=== PATIENT | female | born 1935 | race Hispanic/Latino ===

== ENCOUNTER 2017-06-07 08:49 | Inpatient (IN) | payer MEDICARE ==
[2017-06-07 08:52] VITALS: BMI 30.2
--- NOTE | 2017-06-07 09:25 | ED PDOC ---
Arrival/HPI - General Chief Complaint: Shortness Of Breath Time Seen by Provider: 06/07/17 09:10 Historian: Patient - History of Present Illness Narrative History of Present Illness (Text): 06/07/17 09:20 82 year old female, whose PMH includes hypertension, diabetes, and hypothyroidism, who presents to the emergency department complaining of shortness of breath associated with cough, sputum, fever, and chest congestion for a couple of day. No other complaints were made. PMD: Dr. Perez Time/Duration: < week Symptom Onset: Gradual Symptom Course: Unchanged Context: Home Past Medical History - Provider Review Nursing Documentation Reviewed: Yes - Tetanus Immunization Tetanus Immunization: Unknown - Reproductive Menopause: Yes - Cardiac Hx Hypertension: Yes - Pulmonary Hx Pneumonia: Yes - Neurological Hx Neurological Disorder: No - HEENT Hx HEENT Disorder: (R ear decreased hearing) - Renal Hx Renal Disorder: No - Endocrine/Metabolic Hx Diabetes Mellitus Type 2: Yes Hx Hypothyroidism: Yes - Hematological/Oncological Hx Blood Disorders: No - Integumentary Hx Dermatological Disorder: No - Musculoskeletal/Rheumatological Hx Musculoskeletal Disorders: No Hx Falls: No - Gastrointestinal Hx Gastrointestinal Disorders: No - Genitourinary/Gynecological Hx Genitourinary Disorders: No - Psychiatric Hx Psychophysiologic Disorder: No Hx Depression: No Hx Emotional Abuse: No Hx Physical Abuse: No Hx Substance Use: No - Surgical History Hx Orthopedic Surgery: Yes (2 back surgery and 2 leg surgery) - Anesthesia Hx Anesthesia: Yes Hx Anesthesia Reactions: No Hx Malignant Hyperthermia: No - Suicidal Assessment Feels Threatened In Home Enviroment: No Family/Social History - Physician Review Nursing Documentation Reviewed: Yes Family/Social History: Unknown Family HX Smoking Status: Never Smoked Hx Alcohol Use: No Hx Substance Use: No Hx Substance Use Treatment: No Allergies/Home Meds Allergies/Adverse Reactions: Allergies Penicillins Allergy (Verified 06/07/17 12:05) SWELLING Home Medications: Home Meds Medication Instructions Recorded Confirmed Atorvastatin Calcium [Lipitor] 5 mg PO DAILY 01/08/13 06/07/17 Glipizide [Glipizide ER] 5 mg PO DAILY 06/07/17 06/07/17 Levothyroxine Sodium [Levoxyl] 100 mcg PO DAILY 06/07/17 06/07/17 Losartan [Cozaar] 100 mg PO DAILY 06/07/17 06/07/17 Metoprolol Tartrate [Lopressor] 50 mg PO DAILY 06/07/17 06/07/17 amLODIPine [Norvasc] 5 mg PO DAILY 06/07/17 06/07/17 Review of Systems - Review of Systems Constitutional: Fevers ENT: Sinus Congestion Respiratory: SOB, Cough, Sputum Cardiovascular: absent: Chest Pain Gastrointestinal: absent: Abdominal Pain Genitourinary Female: absent: Dysuria Musculoskeletal: absent: Back Pain Neurological: absent: Headache, Dizziness Physical Exam Vital Signs Reviewed: Yes Vital Signs Temp Pulse Resp BP Pulse Ox 06/07/17 11:13 82 21 104/68 96 06/07/17 09:50 24 95 06/07/17 09:04 98.5 F 80 22 118/77 93 L Temperature: Afebrile Blood Pressure: Normal Pulse: Regular Respiratory Rate: Agonal Appearance: Positive for: Well-Appearing, Non-Toxic, Comfortable Pain Distress: None Mental Status: Positive for: Alert and Oriented X 3 - Systems Exam Head: Present: Atraumatic, Normocephalic Pupils: Present: PERRL Extroacular Muscles: Present: EOMI Conjunctiva: Present: Normal Mouth: Present: Moist Mucous Membranes Respiratory/Chest: Present: Rales (left base), Rhonchi (left base). No: Clear to Auscultation, Good Air Exchange, Respiratory Distress, Accessory Muscle Use Abdomen: No: Tenderness, Distention, Peritoneal Signs, Rebound, Guarding Neurological: Present: GCS=15, CN II-XII Intact, Speech Normal Skin: Present: Warm, Dry, Normal Color. No: Rashes Psychiatric: Present: Alert, Oriented x 3, Normal Insight, Normal Concentration Medical Decision Making ED Course and Treatment: 06/07/17 Impression: 82 year old female with rale and rhonci at the left bases complaining of shortness of breath, coughing, and fever Plan: -- EKG -- Chest X-ray -- Labs -- Urinalysis -- Reassess and disposition Progress Notes: EKG: Ordered, reviewed, and independently interpreted the EKG. Rate : 53 BPM Rhythm : sinus bradycardia Interpretation : No ST-segment elevations or depressions, no T-wave inversions, normal intervals. Comparison : No previous EKG for comparison. 06/07/17 10:20 Chest X-ray: Creator : Davidson Grullon MD COMPARISON: 01/10/2013 FINDINGS: LUNGS: No active pulmonary disease. PLEURA: No significant pleural effusion identified, no pneumothorax apparent. CARDIOVASCULAR: There is chronic vascular congestion and bibasilar infiltrates. Mild cardiomegaly OSSEOUS STRUCTURES: No significant abnormalities. VISUALIZED UPPER ABDOMEN: Normal. OTHER FINDINGS: None. IMPRESSION: Vascular congestion and bibasilar infiltrates similar to previous study 06/08/17 15:32 dr ramos bedside agrees to admission. - Lab Interpretations Microbiology Results: Microbiology Results 06/07/17 10:10 Blood Blood Culture - Preliminary NO GROWTH AFTER 24 HOURS 06/07/17 09:40 Blood Blood Culture - Preliminary NO GROWTH AFTER 24 HOURS Lab Results: 06/07/17 09:30 06/07/17 09:30 Lab Results 06/07/17 09:51: Influenza Typ A,B (EIA) Negative for flu a/b 06/07/17 09:30: Sodium 137, Potassium 3.6, Chloride 102, Carbon Dioxide 24, Anion Gap 15, BUN 19, Creatinine 1.0, Est GFR ( Amer) > 60, Est GFR (Non- Af Amer) 53, Random Glucose 199 H, Calcium 8.8, Magnesium 1.9, Total Bilirubin 1.6 H, AST 20, ALT 25, Alkaline Phosphatase 74, Lactate Dehydrogenase 746 H, Total Creatine Kinase 46, Troponin I < 0.01, NT-Pro-B Natriuret Pep 441, Total Protein 6.5, Albumin 3.7, Globulin 2.8, Albumin/Globulin Ratio 1.3 06/07/17 09:30: PT 13.7 H, INR 1.19 H, APTT 24.6 L 06/07/17 09:30: WBC 15.0 H, RBC 4.46, Hgb 13.3, Hct 38.2, MCV 85.7, MCH 29.8, MCHC 34.8, RDW 12.7, Plt Count 200, MPV 9.9, Gran % 84.9 H, Lymph % (Auto) 5.5 L , Hamilton % (Auto) 8.3 H, Eos % (Auto) 1.1 L, Baso % (Auto) 0.2, Gran # 12.72 H, Lymph # (Auto) 0.8 L, Hamilton # (Auto) 1.2 H, Eos # (Auto) 0.2, Baso # (Auto) 0.03 I have reviewed the lab results: Yes - RAD Interpretation Radiology Orders: 06/07/17 09:17 CHEST PORTABLE [RAD] Stat Drug Abuse Worker: Radiologist - EKG Interpretation Interpreted by ED Physician: Yes Type: 12 lead EKG - Medication Orders Current Medication Orders: Amlodipine Besylate (Norvasc) 5 mg PO DAILY [facility] Last Admin: 06/08/17 10:57 Dose: 5 mg Arformoterol Tartrate (Brovana) 15 mcg IH [id number] [facility] Atorvastatin Calcium (Lipitor) 5 mg PO DAILY [facility] Last Admin: 06/08/17 10:56 Dose: 5 mg Budesonide (Pulmicort Respules) 0.5 mg IH [id number] [facility] Glipizide (Glucotrol Xl) 5 mg PO DAILY [facility] Last Admin: 06/08/17 10:56 Dose: 5 mg Levofloxacin/Dextrose (Levaquin 250mg) 250 mg in 50 mls @ 100 mls/hr IVPB DAILY [facility] PRN Reason: Protocol Levothyroxine Sodium (Synthroid) 100 mcg PO DAILY [facility] Last Admin: 06/08/17 10:57 Dose: 100 mcg Losartan Potassium (Cozaar) 100 mg PO DAILY [facility] Last Admin: 06/08/17 10:56 Dose: 100 mg Metoprolol Tartrate (Lopressor) 50 mg PO DAILY [facility] Last Admin: 06/08/17 10:56 Dose: 50 mg MAR Pulse and Blood Pressure Document 06/08/17 10:56 MV (Rec: 06/08/17 10:57 MV [id number]) Pulse Pulse Rate (60-90) 81 Blood Pressure Blood Pressure (100/60-150/90) 105/61 Discontinued Medications Levofloxacin/Dextrose (Levaquin 750mg) 750 mg in 150 mls @ 150 mls/hr IVPB STAT STA Stop: 06/07/17 10:33 Last Admin: 06/07/17 10:10 Dose: 150 mls/hr eMAR Start Stop Document 06/07/17 10:10 MR (Rec: 06/07/17 10:11 MR [id number]) Intravenous Solution Start Date 06/07/17 Start Time 10:10 End Date 06/07/17 End time 11:10 Total Infusion Time 60 Levofloxacin/Dextrose (Levaquin 500mg) 500 mg in 100 mls @ 100 mls/hr IVPB DAILY [facility] PRN Reason: Protocol Last Admin: 06/08/17 10:56 Dose: 100 mls/hr eMAR Start Stop Document 06/08/17 10:56 MV (Rec: 06/08/17 10:56 MV [id number]) Intravenous Solution Start Date 06/08/17 Start Time 10:56 Pneumococcal Polyvalent Vaccine (Pneumovax 23 Vaccine) 0.5 ml IM .ONCE ONE Stop: 06/07/17 14:52 - Scribe Statement The provider has reviewed the documentation as recorded by the Aminataibe Gini Breaux Provider Scribe Attestation: All medical record entries made by the Scribe were at my direction and personally dictated by me. I have reviewed the chart and agree that the record accurately reflects my personal performance of the history, physical exam, medical decision making, and the department course for this patient. I have also personally directed, reviewed, and agree with the discharge instructions and disposition. Disposition/Present on Arrival - Present on Arrival Any Indicators Present on Arrival: No History of DVT/PE: No History of Uncontrolled Diabetes: No Urinary Catheter: No History of Decub. Ulcer: No History Surgical Site Infection Following: None - Disposition Have Diagnosis and Disposition been Completed?: Yes Diagnosis: Pneumonia Disposition: HOSPITALIZED Disposition Time: 11:00 Condition: FAIR
[2017-06-07] MEDS ORDERED: levoFLOXacin 750 mg in D5W 150 ML BAG IVPB STA (09:26)
[2017-06-07] MEDS ORDERED: levoFLOXacin 750 mg in D5W 750 MG/150 ML BAG IVPB STA (09:34)
[2017-06-07 09:52] LABS: BASO # 0.03 K/mm3 (0.0-2.0); BASO % 0.2 % (0.0-3.0); EOS # 0.2 (0.0-0.7); EOS % 1.1 % (1.5-5.0); GRAN # 12.72 (1.4-6.5); GRAN % 84.9 % (50.0-68.0); HEMOGLOBIN 13.3 g/dL (12.0-16.0); LYMPH # 0.8 (1.2-3.4); LYMPH % 5.5 % (22.0-35.0); MEAN CELL VOLUME 85.7 fl (80.0-105.0); MEAN CORPUSCULAR HEMOGLOBIN 29.8 pg (25.0-35.0); MEAN CORPUSCULAR HGB CONC 34.8 g/dl (31.0-37.0); MEAN PLATELET VOLUME 9.9 fl (7.0-11.0); MONO # 1.2 (0.1-0.6); MONO % 8.3 % (1.0-6.0); RBC 4.46 10^6/uL (3.5-6.1); RED CELL DISTRIBUTION WIDTH 12.7 % (11.5-14.5)
[2017-06-07 10:02] LABS: ALB/GLOB RATIO 1.3 (1.1-1.8); ALBUMIN 3.7 g/dL (3.0-4.8); ALT/SGPT 25 U/L (7-56); AST/SGOT 20 U/L (14-36); BLOOD UREA NITROGEN 19 mg/dL (7-21); CALCIUM 8.8 mg/dL (8.4-10.5); GFR AFRICAN-AMERICAN > 60; GFR NON-AFRICAN AMERICAN 53
[2017-06-07 10:07] LABS: INR 1.19 (0.93-1.08); PARTIAL THROMBOPLASTIN TIME 24.6 Seconds (25.1-36.5); PROTHROMBIN TIME 13.7 SECONDS (9.4-12.5)
[2017-06-07 10:13] LABS: B-TYPE NATRIURETIC PEPTIDE 441 pg/mL (0-450); TROPONIN I < 0.01 ng/mL
--- NOTE | 2017-06-07 10:21 | RAD ---
HISTORY: cough COMPARISON: 01/10/2013 FINDINGS: LUNGS: No active pulmonary disease. PLEURA: No significant pleural effusion identified, no pneumothorax apparent. CARDIOVASCULAR: There is chronic vascular congestion and bibasilar infiltrates. Mild cardiomegaly OSSEOUS STRUCTURES: No significant abnormalities. VISUALIZED UPPER ABDOMEN: Normal. OTHER FINDINGS: None. IMPRESSION: Vascular congestion and bibasilar infiltrates similar to previous study
[2017-06-07] MEDS ORDERED: Pneumococcal 23-Valent Vaccine IM ONE (14:51)
--- NOTE | 2017-06-07 20:26 | CARD ---
APPROVED REPORT EKG Measurement Heart [id number] MD [id number] <Conclusion> Normal sinus rhythm Moderate voltage criteria for LVH, may be normal variant Borderline ECG
--- NOTE | 2017-06-08 03:40 | HP ---
I would like the admitting history and physical to be read as follows, if you would be so kind. HISTORY OF PRESENT ILLNESS: The patient is an 82-year-old female who presented to the emergency room after a 5-day history of cough worsening shortness of breath and fever. The patient noted the onset 5 days ago, tried [id number] medications to relieve her symptoms, but to no avail. Therefore today, presented to the emergency room, was evaluated and admitted. PAST MEDICAL HISTORY: The patient is known to have a past medical history positive for fractured metatarsals in 2001. She has a ligament surgery of the right lower extremity in the past, Deleon cyst surgery of the left lower extremity. She had hemilaminectomies in 1987 and again in 1989 and is still left with chronic back pain. She suffered herpes zoster in 2005, was treated as an outpatient for bibasilar infiltrates in 2008 and was hospitalized overnight with pneumonia in 2012. She has a history of hypertension, kej-snxjznx-cxttrlfgh diabetes mellitus, hypothyroidism and peripheral vascular disease. SOCIAL HISTORY: She never smoked. She is a nonalcoholic drinker. She drinks one to two cups of coffee per day. She is and has one son. MEDICATIONS AT THE TIME OF ADMISSION: Included Advair 250/50, metoprolol tartrate 50 mg twice a day, losartan 100 mg daily, Levoxyl 0.1 mg daily, Lipitor 5 mg daily, Glucotrol 5 mg daily and Norvasc 5 mg daily. She received her Pneumovax vaccine in 2013. ALLERGIES: SHE IS KNOWN TO BE ALLERGIC TO PENICILLIN, WHICH CAUSED RASH IN THE PAST. REVIEW OF SYSTEMS: Otherwise, unremarkable. PHYSICAL EXAMINATION: VITAL SIGNS: Essentially normal. HEENT: When seen in the emergency room, the patient's head, eyes, ears, nose and throat are unremarkable. NECK: Supple with no lymphadenopathy. No goiter. LUNGS: Reveal bibasilar crackles and rales about correction up. HEART: Regular. No murmurs are appreciated. ABDOMEN: Soft and nontender with no organomegaly. EXTREMITIES: Free of cyanosis, clubbing or edema. NEUROLOGICAL: She is awake, alert and oriented with no focal neurological signs. LABORATORY STUDIES: Show the white blood cell count to be 15, hemoglobin is 13.3, hematocrit 38.2, platelet count is 200. Sodium is 137, potassium is 3.6, blood urea nitrogen is 19, creatinine is 1, glucose is 199. Chest x-ray showed bibasilar infiltrates and congestion. EKG shows regular sinus rhythm. So the patient is admitted with bilateral community-acquired pneumonia. She is started on intravenous Levaquin because of her ALLERGY TO ROCEPHIN. We will be asking Dr. Fulton, the income tax return preparer, to consult on the case. Her medications from home are to be continued and the patient will be reevaluated in the morning. Davidson Juárez MD
[2017-06-08 07:12] LABS: BASO # 0.02 K/mm3 (0.0-2.0); BASO % 0.2 % (0.0-3.0); EOS # 0.4 (0.0-0.7); EOS % 3.7 % (1.5-5.0); GRAN # 8.15 (1.4-6.5); GRAN % 75.8 % (50.0-68.0); HEMOGLOBIN 12.6 g/dL (12.0-16.0); LYMPH # 0.9 (1.2-3.4); LYMPH % 8.6 % (22.0-35.0); MEAN CELL VOLUME 85.8 fl (80.0-105.0); MEAN CORPUSCULAR HEMOGLOBIN 29.2 pg (25.0-35.0); MEAN CORPUSCULAR HGB CONC 34.1 g/dl (31.0-37.0); MEAN PLATELET VOLUME 9.8 fl (7.0-11.0); MONO # 1.3 (0.1-0.6); MONO % 11.7 % (1.0-6.0); RBC 4.31 10^6/uL (3.5-6.1); RED CELL DISTRIBUTION WIDTH 12.6 % (11.5-14.5); WHITE BLOOD COUNT 10.8 10^3/ul (4.5-11.0)
[2017-06-08 07:44] LABS: ALB/GLOB RATIO 1.1 (1.1-1.8); ALBUMIN 3.5 g/dL (3.0-4.8); CALCIUM 8.9 mg/dL (8.4-10.5)
[2017-06-08] MEDS ORDERED: levoFLOXacin 500 mg in D5W 500 MG/100 ML BAG IVPB SCH (10:00)
[2017-06-08] MEDS: GlipiZIDE 5 mg SR Tab PO SCH (10:56)
[2017-06-08] MEDS: Levothyroxine 100 MCG TAB PO SCH (10:57)
--- NOTE | 2017-06-08 12:00 | CON ---
DATE: 06/08/2017 PULMONARY CONSULTATION HISTORY OF PRESENT ILLNESS: The patient is an 82-year-old woman who states that she had a 5-day history of cough. This was associated with shortness of breath and fever. She was expectorating watters phlegm. She has no previous pulmonary history. She states that she never smoked. She came to the emergency room yesterday with the above-mentioned symptoms and was admitted for evaluation and treatment. PAST MEDICAL HISTORY: Includes laminectomy, chronic back pain, herpes zoster, radiographic abnormalities in the past with pneumonia, hypertension, xgd-ahbqxup-ddkftphkd diabetes mellitus, hypothyroidism, peripheral vascular disease, and fractured foot. SOCIAL HISTORY: The patient never smoked. There is no travel history. There is no occupational exposure. FAMILY HISTORY: Noncontributory. HOME MEDICATIONS: Reviewed. She was on Advair but she does not recall this. She was on metoprolol, losartan, Levoxyl, Lipitor, Glucotrol, and Norvasc. ALLERGIES: PENICILLIN. REVIEW OF SYSTEMS: Other than current acute cough and expectoration with fever, nothing else appears to be acute at this time. All other systems negative. A full review of systems has been done to and discussed with Dr. Juárez. PHYSICAL EXAMINATION: GENERAL: The patient is sitting in bed. She is coughing but essentially comfortable. VITAL SIGNS: Stable. Blood pressure 130/70, heart rate 82, respiratory rate 18, oxygen sat of 96 on supplemental oxygen. HEENT: Normocephalic, atraumatic. NECK: Supple. No jugular venous tension. No lymphadenopathy. No thyromegaly. No mass. No bruit. HEART: Regular rhythm. S1, S2 without murmur, gallop, or rub. LUNGS: Scattered rales and rhonchi throughout both lung llanos. ABDOMEN: Soft. Bowel sounds normoactive without mass, guarding, rebound, or organomegaly. EXTREMITIES: Reveal no clubbing, cyanosis, or edema. There is no Homans' sign. NEUROLOGICAL: Reveals the patient is awake, alert, and oriented with no focal findings. LYMPHATICS: Lymphadenopathy - not present with evaluation of the supraclavicular notch, cervical, inguinal, and axillary areas. SKIN: No Rashes. Within normal limits LABORATORY DATA: 1. Chest x-ray, although read as normal by radiologist, there is certainly cardiomegaly with multiple bilateral infiltrates either consistent with atypical bacterial infection and possibly the existence of pulmonary vascular congestion. 2. EKG, sinus rhythm with nonspecific ST-T wave changes. 3. White count of 15,000, hemoglobin and hematocrit normal. SMA-7 is normal. Glucose 199. CLINICAL IMPRESSION: 1. Pulmonary vascular congestion. 2. Atypical bacterial infection versus viral pneumonia. 3. Acute bronchospasm. PLAN: The patient will require inhaled bronchodilators and corticosteroids. When better, she will need a pulmonary function study. She is already on Levaquin, which is appropriate for an atypical infection. I strongly suggest evaluation with BMP and cardiology evaluation as well. We will follow her closely and repeat an x-ray in the morning. Thank you for the opportunity to see this patient. We will follow her closely with you as requested. Bryn Fulton MD ANNIE
[2017-06-08] MEDS ORDERED: levoFLOXacin 250 mg in D5W 250 MG/50 ML BAG IVPB SCH (12:02)
[2017-06-08 16:51] VITALS: RESP 20
[2017-06-08] MEDS ORDERED: Arformoterol 15 mcg/2 ml Inh Sol IH SCH (20:00)
[2017-06-08] MEDS: Arformoterol 15 mcg/2 ml Inh Sol IH SCH (21:10)
[2017-06-08] MEDS: Budesonide 0.5 mg/2 ml Inhal Susp UD IH SCH (21:10)
--- NOTE | 2017-06-08 23:20 | PN ---
DATE: 06/08/2017 SUBJECTIVE: The patient is seen on this Wednesday, in room 378, bed 1. She is sitting at the edge of the bed. She is awake, alert, and in good spirits. Breathing comfortably. PHYSICAL EXAMINATION GENERAL: She is afebrile at that time and in good spirits, continuing antibiotics and followup. LUNGS: There were some rales at the bases, on both right and left sides, compatible with her diagnosis of pneumonia. IMPRESSION: Pneumonia. PLAN: Continue antibiotics. I explained to the patient that it might be a 50-50 chance of her being well enough to be discharged to home tomorrow, it is not more likely on . Brian Juárez MD
[2017-06-09] MEDS: Arformoterol 15 mcg/2 ml Inh Sol IH SCH (07:34)
[2017-06-09] MEDS: Budesonide 0.5 mg/2 ml Inhal Susp UD IH SCH (07:34)
[2017-06-09 08:31] VITALS: PULSE 98; TEMP 98.4; O2SAT 97
[2017-06-09] MEDS: GlipiZIDE 5 mg SR Tab PO SCH (09:58)
[2017-06-09] MEDS: Levothyroxine 100 MCG TAB PO SCH (10:00)
[2017-06-09 10:08] VITALS: BP 130/79
--- NOTE | 2017-06-09 10:27 | RAD ---
HISTORY: pneumonia COMPARISON: 06/07/2017 TECHNIQUE: Chest PA and lateral FINDINGS: LUNGS: Bilateral lower lobe infiltrates are seen consistent with pneumonia. The findings are unchanged PLEURA: No significant pleural effusion identified. No pneumothorax apparent. CARDIOVASCULAR: Moderate vascular congestion OSSEOUS STRUCTURES: No significant abnormalities. VISUALIZED UPPER ABDOMEN: Normal. OTHER FINDINGS: None. IMPRESSION: Bilateral lower lobe infiltrates consistent with pneumonia
--- NOTE | 2017-06-09 14:13 | PN ---
DATE: 06/09/2017 PULMONARY PROGRESS NOTE SUBJECTIVE: The patient was seen and examined at bedside. She is currently receiving an inhalation therapy with Brovana and budesonide and she is also on intravenous levofloxacin. The patient is not using oxygen. PHYSICAL EXAMINATION: VITAL SIGNS: Her temperature is 98, pulse 90, respirations 20, blood pressure 100/65, oxygen saturation is 97% on room air. HEENT: Examination of head, normocephalic and atraumatic. NECK: Supple with no jugular vein distention. CHEST: Symmetrical. HEART: S1 and S2. No S3. Regular. PULMONARY: Diminished breath sounds at both lung bases with few scattered rhonchi. No wheezing. GASTROINTESTINAL: Soft and nontender. No organomegaly. EXTREMITIES: No pedal edema. SKIN: Clear with no skin rashes, no cyanosis. NEUROLOGIC: Limited at the present time. LABORATORY DATA: There is no new labs. ASSESSMENT: 1. Pulmonary vascular congestion. 2. Bilateral pneumonia. 3. Bronchospasm. PLAN: The patient is improving on intravenous Levaquin. I would keep her on current nebulizer treatment, oxygen is no longer required. She is making good progress. We will reevaluate and repeat chest x-ray. Anirudh Begum MD
--- NOTE | 2017-06-10 03:20 | DS ---
SUMMARY: The patient is an 82-year-old female with a history of hypertension, non-insulin dependant diabetes mellitus, hypothyroidism, and perivascular disease. She also has a history of herpes zoster in 2006 and multiple orthopedic surgeries including ligament surgery, surgery for fractured metatarsal, Deleon's cyst, hemilaminectomies x2 in the past, who presented to the emergency room after 5 days of shortness of breath and fever. Chest x-ray showed bilateral infiltrates. Patient was started on intravenous levofloxacin and admitted. During the hospital stay, she was followed by the pulmonologists Dr. Fulton and Dr. Begum and did well. Her other medications from home for hypothyroidism, diabetes, and hypertension were continued during the hospital stay. On the morning of the 06/09/2017, the patient was feeling well. She was in good spirits. Respirations were easy. She no longer needed nasal cannula oxygen, therefore arrangements were made for her to be transferred to home. Her pharmacy was contacted to continue the Levaquin for the next 5 to 7 days and the patient was discharged in improved condition. FINAL DIANGOSES: 1. Bilateral community acquired pneumonia. 2. History of hypertension. 3. History of diabetes. 4. History of hypothyroidism. Davidson Juárez MD
== END 2017-06-09 14:22 | disposition home or self-care (01) | DRG 195 ==
LOC: ED 08:49 → ERH 10:13 → 3RSO 11:41
PROVIDERS: ADMIT Internal Medicine; ATTEND Internal Medicine
PROC: 3E0F7GC Introduction of Other Therapeutic Substance into Respiratory Tract, Via Natural or Artificial Opening (ICD-10-PCS; principal; 2017-06-08)
DX: J18.9 Pneumonia, unspecified organism (principal); J98.01 Acute bronchospasm; I10 Essential (primary) hypertension; E11.9 Type 2 diabetes mellitus without complications; E03.9 Hypothyroidism, unspecified; Z79.84 Long term (current) use of oral hypoglycemic drugs

== ENCOUNTER 2017-11-05 13:26 | Inpatient (IN) | payer MEDICARE ==
[2017-11-05] MEDS ORDERED: Sodium Chloride 0.9% 1,000 ML IV STA (14:00)
[2017-11-05 14:06] VITALS: BMI 33.0
[2017-11-05] MEDS ORDERED: levoFLOXacin 750 mg in D5W 750 MG/150 ML BAG IVPB STA (14:25)
[2017-11-05] MEDS ORDERED: Vancomycin 1gm in NS 250ml 1 GM/250 ML BAG IVPB STA (14:29)
--- NOTE | 2017-11-05 14:30 | ED PDOC ---
Arrival/HPI - General Historian: Patient, Family - Critical Care Critical Care Minutes: 45 minutes Narrative Critical Care (Text): 11/05/17 82 yo female come in accompanied by for evaluation of cold sx gradually developed for past 4 days "after had flu shot". Pt reports, developed fever, chills, runny nose, dry cough worsen over time. Pt was seen by [facility] and sent to Ed for further evaluation. As per , "appears SOB, tac hycardic and febrile in office". At present time, pt appears febrile, mild resp. distress, occasional dry cough noted. <Stephanie Fisher - Last Filed: 11/05/17 15:35> <Rob Leon - Last Filed: 11/05/17 16:49> - General Chief Complaint: Fever Time Seen by Provider: 11/05/17 13:58 Past Medical History - Provider Review Nursing Documentation Reviewed: Yes - Travel History Have you recently traveled outside [place] w/in the past 3 mons?: No - Infectious Disease Hx of Infectious Diseases: None - Tetanus Immunization Tetanus Immunization: Unknown - Cardiac Hx Hypertension: Yes - Pulmonary Hx Pneumonia: Yes - Neurological Hx Neurological Disorder: No - HEENT Hx HEENT Disorder: (R ear decreased hearing) - Renal Hx Renal Disorder: No - Endocrine/Metabolic Hx Diabetes Mellitus Type 2: Yes Hx Hypothyroidism: Yes - Hematological/Oncological Hx Blood Disorders: No - Integumentary Hx Dermatological Disorder: No - Musculoskeletal/Rheumatological Hx Musculoskeletal Disorders: No Hx Falls: No - Gastrointestinal Hx Gastrointestinal Disorders: No - Genitourinary/Gynecological Hx Genitourinary Disorders: No - Psychiatric Hx Psychophysiologic Disorder: No Hx Depression: No Hx Emotional Abuse: No Hx Physical Abuse: No Hx Substance Use: No - Surgical History Hx Orthopedic Surgery: Yes (2 back surgery and 2 leg surgery) - Anesthesia Hx Anesthesia: Yes Hx Anesthesia Reactions: No Hx Malignant Hyperthermia: No - Suicidal Assessment Feels Threatened In Home Enviroment: No <Stephanie Fisher - Last Filed: 11/05/17 15:35> Family/Social History - Physician Review Nursing Documentation Reviewed: Yes Family/Social History: No Known Family HX Smoking Status: Never Smoked Hx Alcohol Use: No Hx Substance Use: No Hx Substance Use Treatment: No <Stephanie Fisher - Last Filed: 11/05/17 15:35> Allergies/Home Meds <Stephanie Fisher - Last Filed: 11/05/17 15:35> <Rob Leon - Last Filed: 11/05/17 16:49> Allergies/Adverse Reactions: Allergies Penicillins Allergy (Verified 11/05/17 16:15) SWELLING Home Medications: Home Meds Medication Instructions Recorded Confirmed Atorvastatin Calcium [Lipitor] 5 mg PO DAILY 01/08/13 06/07/17 Glipizide [Glipizide ER] 5 mg PO DAILY 06/07/17 06/07/17 Levothyroxine Sodium [Levoxyl] 100 mcg PO DAILY 06/07/17 06/07/17 Losartan [Cozaar] 100 mg PO DAILY 06/07/17 06/07/17 Metoprolol Tartrate [Lopressor] 50 mg PO DAILY 06/07/17 06/07/17 amLODIPine [Norvasc] 5 mg PO DAILY 06/07/17 06/07/17 Review of Systems - Review of Systems Constitutional: Fatigue, Fevers Eyes: Normal ENT: Rhinorrhea Respiratory: SOB, Cough. absent: Wheezing Cardiovascular: Normal. absent: Chest Pain, Palpitations Gastrointestinal: Nausea. absent: Abdominal Pain, Diarrhea, Vomiting Genitourinary Female: absent: Dysuria Musculoskeletal: Normal Skin: absent: Rash Neurological: Normal. absent: Headache, Dizziness Endocrine: Normal Hemo/Lymphatic: Normal Psychiatric: Normal <Stephanie Fisher - Last Filed: 11/05/17 15:35> Physical Exam Vital Signs Reviewed: Yes Vital Signs Temp Pulse Resp BP Pulse Ox 11/05/17 14:06 101.9 F H 136 H 18 157/91 H 95 11/05/17 13:57 98.7 F 135 H 18 141/91 H 92 L Temperature: Febrile Blood Pressure: Hypertensive Pulse: Tachycardic Respiratory Rate: Normal Appearance: Positive for: Well-Appearing, Non-Toxic, Comfortable Pain Distress: Mild Mental Status: Positive for: Alert and Oriented X 3 - Systems Exam Head: Present: Normocephalic Conjunctiva: Present: Normal Ears: Present: NORMAL TM, Normal Canal Mouth: Present: Moist Mucous Membranes, Normal Lips. No: Drooling Pharnyx: Present: ERYTHEMA (midl B/L). No: EXUDATE Nose (Internal): Present: Rhinorrhea (clear B/L) Neck: Present: Trachea Midline. No: Meningeal Signs, JVD, Bruit Respiratory/Chest: Present: Good Air Exchange, Wheezes (scattered bibasilar expiratory wheezing). No: Respiratory Distress, Accessory Muscle Use Cardiovascular: Present: Regular Rate and Rhythm, Normal S1, S2, Tachycardic. No: Murmurs Abdomen: No: Tenderness, Distention, Peritoneal Signs, Rebound, Guarding Upper Extremity: Present: Normal Inspection Lower Extremity: Present: Normal Inspection, Normal ROM. No: Edema, CALF TENDERNESS, Deformity Neurological: Present: GCS=15, Speech Normal, Normal Sensory Function, Norm Deep Tendon Reflexes Skin: Present: Warm, Dry, Normal Color. No: Rashes Psychiatric: Present: Alert, Oriented x 3, Normal Insight, Normal Concentration <Stephanie Fisher - Last Filed: 11/05/17 15:35> Vital Signs Temp Pulse Resp BP Pulse Ox 11/05/17 16:00 128 H 20 121/70 98 11/05/17 15:06 100.5 F H 140 H 20 130/84 98 11/05/17 14:06 101.9 F H 136 H 18 157/91 H 95 11/05/17 13:57 98.7 F 135 H 18 141/91 H 92 L <Rob Leon - Last Filed: 11/05/17 16:49> Medical Decision Making ED Course and Treatment: 11/05/17 14:31 After my initial evaluation, pt met criteria and code sepsis was called. Hydration, sx tx, empirically abx ordered. At 15:49, pt evaluated by missileman and admission arranged to ICU. requested CT chest w/o contrast prior to admission. - RAD Interpretation Radiology Orders: 11/05/17 13:59 CHEST PORTABLE [RAD] Stat - EKG Interpretation EKG Interpretation (Text): 11/05/17 14:12 Sinus tachy@132/min Interpreted by ED Physician: Yes - Medication Orders Current Medication Orders: Acetaminophen (Tylenol 325mg Tab) 975 mg PO ONCE PRN PRN Reason: Fever >100.4 F Sodium Chloride (Sodium Chloride 0.9%) 1,000 mls @ 999 mls/hr IV .Q1H1M STA Stop: 11/05/17 15:00 Lactated Ringer's 2,000 ml/ IV (SUPPLIES) 2,000 mls @ 4,599.42 mls/hr IV ONCE ONE Stop: 11/05/17 14:47 Levofloxacin/Dextrose (Levaquin 750mg) 750 mg in 150 mls @ 100 mls/hr IVPB STAT STA; Protocol Stop: 11/05/17 15:54 Vancomycin HCl (Vancomycin 1gm) 1 gm in 250 mls @ 167 mls/hr IVPB STAT STA; Protocol Stop: 11/05/17 15:54 <Stephanie Fisher - Last Filed: 11/05/17 15:35> - Lab Interpretations Lab Results: 11/05/17 14:30 11/05/17 14:30 Lab Results 11/05/17 14:30: pO2 55, VBG pH 7.37, VBG pCO2 40.0, VBG HCO3 23.1, VBG Total CO2 24.3, VBG O2 Sat (Calc) 92.1 H, VBG Base Excess -2.0 L, VBG Potassium 3.7, Sod ium 131.0 L, Chloride 99.0, Glucose 200 H, Lactate 2.2 H, FiO2 21.0, Venous Blood Potassium 3.7 11/05/17 14:30: Influenza Typ A,B (EIA) Negative for flu a/b 11/05/17 14:30: Sodium 133, Chloride 97 L, Potassium 3.6, Carbon Dioxide 23, Anion Gap 17, BUN 26 H, Creatinine 1.4 H, Est GFR ( Amer) 44, Est GFR (N on-Af Amer) 36, Random Glucose 191 H, Calcium 9.2, Magnesium 1.7, Total Bilirubin 1.6 H, AST 22, ALT 19, Alkaline Phosphatase 91, Troponin I < 0.01, NT-Pro-B Natriuret Pep 658 H, Total Protein 7.4, Albumin 3.9, Globulin 3.5, Albumin/Globulin Ratio 1.1 11/05/17 14:30: PT 15.3 H, INR 1.33, APTT 25.6 11/05/17 14:30: WBC 12.0 H, RBC 4.49, Hgb 13.5, Hct 38.9, MCV 86.6, MCH 30.1, MCHC 34.7, RDW 12.7, Plt Count 164, MPV 10.5, Gran % 84.6 H, Lymph % (Auto) 3.8 L, [place] % (Auto) 11.4 H, Eos % (Auto) 0.1 L, Baso % (Auto) 0.1, Gran # 10.13 H, Lymph # (Auto) 0.5 L, [place] # (Auto) 1.4 H, Eos # (Auto) 0.0, Baso # (Auto) 0.01, Neutrophils % (Manual) 82 H, Band Neutrophils % 2, Lymphocytes % (Manual) 6 L, Monocytes % (Manual) 10 H, Platelet Evaluation Normal - RAD Interpretation Radiology Orders: 11/05/17 13:59 CHEST PORTABLE [RAD] Stat 11/05/17 15:35 CHEST W/O CONTRAST [CT] Stat - Medication Orders Current Medication Orders: Acetaminophen (Tylenol 325mg Tab) 975 mg PO ONCE PRN PRN Reason: Fever >100.4 F Stop: 11/05/17 23:59 Last Admin: 11/05/17 15:07 Dose: 975 mg MAR Pain/Vitals Document 11/05/17 15:07 [facility] (Rec: 11/05/17 15:07 [id number] Pain Reassessment Is This A Pain ReAssessment? No Sleep Is patient sleeping during reassessment? No Presence of Pain Presence of Pain No Amlodipine Besylate (Norvasc) 5 mg PO DAILY [facility] Atorvastatin Calcium (Lipitor) 5 mg PO DAILY [facility] Heparin Sodium (Porcine) (Heparin) 5,000 units SC Q8 [facility]; Protocol Aztreonam (Azactam 1 Gm) 100 mls @ 100 mls/hr IVPB Q12H [facility]; Protocol Stop: 11/06/17 04:44 Sodium Chloride (Sodium Chloride 0.9%) 1,000 mls @ 125 mls/hr IV .Q8H [facility] Last Admin: 11/05/17 16:22 Dose: 125 mls/hr eMAR Start Stop Document 11/05/17 16:22 [facility] (Rec: 11/05/17 16:[address] [id number] Intravenous Solution Start Date 11/05/17 Start Time 16:22 Azithromycin (Zithromax 500mg In Ns) 500 mg in 250 mls @ 167 mls/hr IVPB DAILY [facility]; Protocol Vancomycin HCl (Vancomycin 1gm) 1 gm in 250 mls @ 167 mls/hr IVPB DAILY [facility]; Protocol Insulin Human Regular (Humulin R Med) 0 units SC ACHS [facility]; Protocol Levalbuterol HCl (Xopenex) 0.63 mg IH [id number] PRN PRN Reason: Shortness of Breath Levothyroxine Sodium (Synthroid) 100 mcg PO DAILY [facility] Metoprolol Tartrate (Lopressor) 50 mg PO DAILY [facility] Pantoprazole Sodium (Protonix Ec Tab) 40 mg PO 0600 [facility] Discontinued Medications Acetaminophen (Tylenol 325mg Tab) 975 mg PO STAT STA Stop: 11/05/17 14:29 Last Admin: 11/05/17 15:17 Dose: Not Given Non-Admin Reason: doublcate order Sodium Chloride (Sodium Chloride 0.9%) 1,000 mls @ 999 mls/hr IV .Q1H1M STA Stop: 11/05/17 15:00 Last Admin: 11/05/17 14:10 Dose: 999 mls/hr eMAR Start Stop Document 11/05/17 14:10 [facility] (Rec: 11/05/17 15:03 [facility] [id number]) Intravenous Solution Start Date 11/05/17 Start Time 14:10 End Date 11/05/17 End time 15:10 Total Infusion Time 60 Lactated Ringer's 2,000 ml/ IV (SUPPLIES) 2,000 mls @ 4,599.42 mls/hr IV ONCE ONE Stop: 11/05/17 14:47 Last Admin: 11/05/17 14:20 Dose: 4,599.42 mls/hr eMAR Start Stop Document 11/05/17 14:20 HERMIN[facility] (Rec: 11/05/17 15:05 [id number] Intravenous Solution Start Date 11/05/17 Start Time 14:30 End Date 11/05/17 End time 15:00 Total Infusion Time 30 Levofloxacin/Dextrose (Levaquin 750mg) 750 mg in 150 mls @ 100 mls/hr IVPB STAT STA; Protocol Stop: 11/05/17 15:54 Last Admin: 11/05/17 15:00 Dose: 100 mls/hr eMAR Start Stop Document 11/05/17 15:00 HER[facility] (Rec: 11/05/17 15:06 [facility] [id number]) Intravenous Solution Start Date 11/05/17 Start Time 15:00 End Date 11/05/17 End time 16:30 Total Infusion Time 90 Vancomycin HCl (Vancomycin 1gm) 1 gm in 250 mls @ 167 mls/hr IVPB STAT STA; Protocol Stop: 11/05/17 15:58 Last Admin: 11/05/17 16:18 Dose: 167 mls/hr eMAR Start Stop Document 11/05/17 16:18 HERMINIA (Rec: 11/05/17 16:18 [facility] [id number]) Intravenous Solution Start Date 11/05/17 Start Time 16:18 Vancomycin HCl (Vancomycin 1gm) 1 gm in 250 mls @ 167 mls/hr IVPB DAILY [facility]; Protocol Last Admin: 11/05/17 16:34 Dose: Not Given Non-Admin Reason: given already Ondansetron HCl (Zofran Inj) 4 mg IVP ONCE ONE Stop: 11/05/17 15:58 Last Admin: 11/05/17 16:17 Dose: 4 mg IVP Administration Document 11/05/17 16:17 HERMINIA (Rec: 11/05/17 16:17 [facility] [id number]) Charges for Administration # of IVP Administrations 1 <Rob Leon - Last Filed: 11/05/17 16:49> - PA / UNDERWEAR CUTTER / Resident Statement / has reviewed & agrees with the documentation as recorded. <Rob Leon - Last Filed: 11/05/17 16:49> Disposition/Present on Arrival - Present on Arrival Any Indicators Present on Arrival: Yes History of DVT/PE: No History of Uncontrolled Diabetes: No Urinary Catheter: No History of Decub. Ulcer: No History Surgical Site Infection Following: None - Disposition Have Diagnosis and Disposition been Completed?: Yes Disposition Time: 15:36 Patient Plan: Admission, ICU <Stephanie Fisher - Last Filed: 11/05/17 15:35> <Rob Leon - Last Filed: 11/05/17 16:49> - Disposition Diagnosis: Pneumonia, Sepsis Disposition: HOSPITALIZED Patient Problems: Current Active Problems Problem Status Onset Pneumonia Acute Sepsis Acute Condition: FAIR
--- NOTE | 2017-11-05 14:43 | RAD ---
Date of service: 11/05/2017 HISTORY: Sepsis Patient COMPARISON: Chest radiograph dated 06/09/2017. FINDINGS: LUNGS: Stable chronic prominence of the bilateral interstitial markings with bibasilar fibrotic changes. Superimposed pulmonary vascular congestion not excluded. PLEURA: No significant pleural effusion identified, no pneumothorax apparent. CARDIOVASCULAR: Atherosclerotic aortic calcifications. Cardiomediastinal silhouette stably enlarged OSSEOUS STRUCTURES: Unchanged. VISUALIZED UPPER ABDOMEN: Normal. OTHER FINDINGS: None. IMPRESSION: Stable chronic prominence of the bilateral interstitial markings with bibasilar fibrotic changes. Superimposed pulmonary vascular congestion not excluded.
[2017-11-05 14:49] LABS: VENOUS BLOOD GAS PO2 55 mm/Hg (30-55); VENOUS BLOOD PH 7.37 (7.32-7.43)
[2017-11-05 14:52] LABS: BASO # 0.01 K/mm3 (0.0-2.0); BASO % 0.1 % (0.0-3.0); EOS % 0.1 % (1.5-5.0); GRAN # 10.13 (1.4-6.5); GRAN % 84.6 % (50.0-68.0); HEMOGLOBIN 13.5 g/dL (12.0-16.0); LYMPH # 0.5 (1.2-3.4); LYMPH % 3.8 % (22.0-35.0); MEAN CELL VOLUME 86.6 fl (80.0-105.0); MEAN CORPUSCULAR HEMOGLOBIN 30.1 pg (25.0-35.0); MEAN CORPUSCULAR HGB CONC 34.7 g/dl (31.0-37.0); MEAN PLATELET VOLUME 10.5 fl (7.0-11.0); MONO # 1.4 (0.1-0.6); MONO % 11.4 % (1.0-6.0); PLATELET COUNT 164 10^3/uL (120.0-450.0); RBC 4.49 10^6/uL (3.5-6.1); RED CELL DISTRIBUTION WIDTH 12.7 % (11.5-14.5)
[2017-11-05 14:57] LABS: INR 1.33; PARTIAL THROMBOPLASTIN TIME 25.6 Seconds (25.1-36.5); PROTHROMBIN TIME 15.3 SECONDS (9.4-12.5)
[2017-11-05 14:58] LABS: ALB/GLOB RATIO 1.1 (1.1-1.8); ALBUMIN 3.9 g/dL (3.0-4.8); ALT/SGPT 19 U/L (7-56); AST/SGOT 22 U/L (14-36); BLOOD UREA NITROGEN 26 mg/dL (7-21); CALCIUM 9.2 mg/dL (8.4-10.5); GFR NON-AFRICAN AMERICAN 36
[2017-11-05 15:10] LABS: B-TYPE NATRIURETIC PEPTIDE 658 pg/mL (0-450); TROPONIN I < 0.01 ng/mL
[2017-11-05] MEDS ORDERED: Vancomycin 1gm in NS 250ml 1 GM/250 ML BAG IVPB SCH (15:45)
[2017-11-05] MEDS ORDERED: Levalbuterol 0.63 MG/3 ML Inhal Soln UD IH PRN (15:50)
[2017-11-05 16:01] LABS: BAND 2 % (0-2); LYMPHOCYTE 6 % (22.0-35.0); MONOCYTE 10 % (1.0-6.0); NEUTROPHIL 82 % (50.0-70.0)
[2017-11-05 16:02] LABS: PLATELET ESTIMATE NORMAL (NORMAL)
--- NOTE | 2017-11-05 16:04 | CP.PCM.CON ---
History of Present Illness - History of Present Illness History of Present Illness: MICU CONSULT NOTE Patient is 82yo female with PMhx of HTN, HLD, DMII, obesity, presents from PMDs office with fever, cough, and SOB. Pt reports earlier this week, she received the flu shot, after which she developed fever, malaise, SOB, and cough productive of watters sputum. Pt denies recent travel, sick contacts, recent hospitalizations, chest pain, palpitations, JIMENEZ, dizziness. In the ER patient was noted to have HR 140s, sinus, T 101.9, given 2L NS bolus, Tylenol PO, Levaquin IV. PMHx HTN, HLD, DMII, obesity PSHx NONE Meds as per EMR FHx NC Social denies smoking, drug use, etoh; retired Review of Systems - Review of Systems Review of Systems: as per HPI Past Patient History - Infectious Disease Hx of Infectious Diseases: None - Tetanus Immunizations Tetanus Immunization: Unknown - Past Social History Smoking Status: Never Smoked - CARDIAC Hx Hypertension: Yes - PULMONARY Hx Pneumonia: Yes - NEUROLOGICAL Hx Neurological Disorder: No - HEENT Hx HEENT Problems: (R ear decreased hearing) - RENAL Hx Chronic Kidney Disease: No - ENDOCRINE/METABOLIC Hx Diabetes Mellitus Type 2: Yes Hx Hypothyroidism: Yes - HEMATOLOGICAL/ONCOLOGICAL Hx Blood Disorders: No - INTEGUMENTARY Hx Dermatological Problems: No - MUSCULOSKELETAL/RHEUMATOLOGICAL Hx Musculoskeletal Disorders: No Hx Falls: No - GASTROINTESTINAL Hx Gastrointestinal Disorders: No - GENITOURINARY/GYNECOLOGICAL Hx Genitourinary Disorders: No - PSYCHIATRIC Hx Psychophysiologic Disorder: No Hx Depression: No Hx Emotional Abuse: No Hx Physical Abuse: No Hx Substance Use: No - SURGICAL HISTORY Hx Orthopedic Surgery: Yes (2 back surgery and 2 leg surgery) - ANESTHESIA Hx Anesthesia: Yes Hx Anesthesia Reactions: No Hx Malignant Hyperthermia: No Meds Allergies/Adverse Reactions: Allergies Allergy/AdvReac Type Severity Reaction Status Date / Time Penicillins Allergy SWELLING Verified 11/05/17 13:59 - Medications Medications: Current Medications Acetaminophen (Tylenol 325mg Tab) 975 mg PO ONCE PRN PRN Reason: Fever >100.4 F Last Admin: 11/05/17 15:07 Dose: 975 mg Amlodipine Besylate (Norvasc) 5 mg PO DAILY [facility] Atorvastatin Calcium (Lipitor) 5 mg PO DAILY [facility] Heparin Sodium (Porcine) (Heparin) 5,000 units SC Q8 [facility]; Protocol Levofloxacin/Dextrose (Levaquin 750mg) 750 mg in 150 mls @ 100 mls/hr IVPB STAT STA; Protocol Stop: 11/05/17 15:54 Last Admin: 11/05/17 15:00 Dose: 100 mls/hr Vancomycin HCl (Vancomycin 1gm) 1 gm in 250 mls @ 167 mls/hr IVPB STAT STA; Protocol Stop: 11/05/17 15:58 Aztreonam (Azactam 1 Gm) 100 mls @ 100 mls/hr IVPB Q12H [facility]; Protocol Stop: 11/06/17 04:44 Sodium Chloride (Sodium Chloride 0.9%) 1,000 mls @ 125 mls/hr IV .Q8H [facility] Vancomycin HCl (Vancomycin 1gm) 1 gm in 250 mls @ 167 mls/hr IVPB DAILY [facility]; Protocol Azithromycin (Zithromax 500mg In Ns) 500 mg in 250 mls @ 167 mls/hr IVPB DAILY [facility]; Protocol Insulin Human Regular (Humulin R Med) 0 units SC ACHS [facility]; Protocol Levalbuterol HCl (Xopenex) 0.63 mg IH [id number] PRN PRN Reason: Shortness of Breath Levothyroxine Sodium (Synthroid) 100 mcg PO DAILY [facility] Metoprolol Tartrate (Lopressor) 50 mg PO DAILY [facility] Pantoprazole Sodium (Protonix Ec Tab) 40 mg PO 0600 [facility] Physical Exam - Constitutional Appears: Non-toxic, No Acute Distress - Head Exam Head Exam: NORMAL INSPECTION - Eye Exam Eye Exam: Normal appearance - ENT Exam ENT Exam: Mucous Membranes Dry - Neck Exam Neck exam: Positive for: Full Rom - Respiratory Exam Respiratory Exam: Rales, NORMAL BREATHING PATTERN - Cardiovascular Exam Cardiovascular Exam: Tachycardia, REGULAR RHYTHM, +S1, +S2 - GI/Abdominal Exam GI & Abdominal Exam: Normal Bowel Sounds, Soft - Extremities Exam Extremities exam: Positive for: normal inspection - Neurological Exam Neurological exam: Alert, Oriented x3 - Psychiatric Exam Psychiatric exam: Normal Affect - Skin Skin Exam: Normal Color, Warm Results - Vital Signs Recent Vital Signs: Last Vital Signs Temp 100.5 F H 11/05/17 15:06 Pulse 140 H 11/05/17 15:06 Resp 20 11/05/17 15:06 BP 130/84 09/28/18 15:06 Pulse Ox 98 11/05/17 15:06 - Labs Result Diagrams: 11/05/17 14:30 11/05/17 14:30 Labs: Laboratory Results - last 24 hr 11/05/17 11/05/17 11/05/17 14:30 14:30 14:30 WBC 12.0 H RBC 4.49 Hgb 13.5 Hct 38.9 MCV 86.6 MCH 30.1 MCHC 34.7 RDW 12.7 Plt Count 164 MPV 10.5 Gran % 84.6 H Lymph % (Auto) 3.8 L Stevens % (Auto) 11.4 H Eos % (Auto) 0.1 L Baso % (Auto) 0.1 Gran # 10.13 H Lymph # (Auto) 0.5 L Stevens # (Auto) 1.4 H Eos # (Auto) 0.0 Baso # (Auto) 0.01 PT 15.3 H INR 1.33 APTT 25.6 pO2 VBG pH VBG pCO2 VBG HCO3 VBG Total CO2 VBG O2 Sat (Calc) VBG Base Excess VBG Potassium Sodium 133 Chloride 97 L Glucose Lactate FiO2 Potassium 3.6 Carbon Dioxide 23 Anion Gap 17 BUN 26 H Creatinine 1.4 H Est GFR ( Amer) 44 Est GFR (Non-Af Amer) 36 Random Glucose 191 H Calcium 9.2 Magnesium 1.7 Total Bilirubin 1.6 H AST 22 ALT 19 Alkaline Phosphatase 91 Troponin I < 0.01 NT-Pro-B Natriuret Pep 658 H Total Protein 7.4 Albumin 3.9 Globulin 3.5 Albumin/Globulin Ratio 1.1 Venous Blood Potassium Influenza Typ A,B (EIA) 11/05/17 11/05/17 14:30 14:30 WBC RBC Hgb Hct MCV MCH MCHC RDW Plt Count MPV Gran % Lymph % (Auto) Stevens % (Auto) Eos % (Auto) Baso % (Auto) Gran # Lymph # (Auto) Stevens # (Auto) Eos # (Auto) Baso # (Auto) PT INR APTT pO2 55 VBG pH 7.37 VBG pCO2 40.0 VBG HCO3 23.1 VBG Total CO2 24.3 VBG O2 Sat (Calc) 92.1 H VBG Base Excess -2.0 L VBG Potassium 3.7 Sodium 131.0 L Chloride 99.0 Glucose 200 H Lactate 2.2 H FiO2 21.0 Potassium Carbon Dioxide Anion Gap BUN Creatinine Est GFR ( Amer) Est GFR (Non-Af Amer) Random Glucose Calcium Magnesium Total Bilirubin AST ALT Alkaline Phosphatase Troponin I NT-Pro-B Natriuret Pep Total Protein Albumin Globulin Albumin/Globulin Ratio Venous Blood Potassium 3.7 Influenza Typ A,B (EIA) Negative for flu a/b - Imaging and Cardiology Chest x-ray Status: Image reviewed by me, Report reviewed by me Assessment & Plan - Assessment and Plan (Free Text) Assessment: 82yo female a/w severe sepsis, fever, SOB, cough, PNA Severe Sepsis Fever SOB Cough PNA Sinus Tachycardia - currently febrile, T 100.5, Tm 101.9, BP stable, HR 140s, sinus which is concerning, clinically dry, has rales/rhonchi on exam - Labs, imaging, chart reviewed - CXR with worsening of chronic findings of interstitial markings, cannot rule out infiltrate; CT Chest without contrast (elevated Cr) pending Recommend: - supp o2 as needed, goal sat 90%, Duonebs PRN, IS - broad spectrum Abx, Aztreonam (PCN allergy), Vanco, Azithro - check urine Legionella, Strep - Panculture, Ucx, BCx, check Procal - ID consult - sputum culture - aggressive IVF hydration - Fever control, Tylenol - hold BP meds for now - Lopressor PO - ECHO - CT chest without contrast - GI ppx - DVT ppx - Monitor in MICU
[2017-11-05 16:09] LABS: URINE BILIRUBIN NEGATIVE (NEGATIVE); URINE BLOOD NEGATIVE (NEGATIVE); URINE GLUCOSE (UA) NEGATIVE (NEGATIVE); URINE LEUKOCYTE ESTERASE SMALL Leu/uL (NEGATIVE); URINE PROTEIN 30 mg/dL (<30 mg/dL); URINE UROBILINOGEN 0.2 E.U./dL (<1 E.U./dL)
[2017-11-05 16:10] LABS: URINE APPEARANCE CLEAR (CLEAR); URINE COLOR YELLOW (YELLOW)
[2017-11-05] MEDS: Sodium Chloride 0.9% 1,000 ML IV SCH (16:22)
[2017-11-05 16:23] LABS: URINE RBC NEGATIVE /hpf (0-2)
[2017-11-05 16:24] LABS: URINE BACTERIA LARGE (NEG)
[2017-11-05 16:36] LABS: ARTERIAL BLOOD GAS HCO3 17.9 mmol/L (21-28); ARTERIAL BLOOD GAS O2 SAT 97.6 % (95-98); ARTERIAL BLOOD GAS PCO2 27 mm/Hg (35-45); ARTERIAL BLOOD GAS PH 7.43 (7.35-7.45); ARTERIAL BLOOD GAS TCO2 18.7 mmol.L (22-28)
[2017-11-05] MEDS ORDERED: Insulin Regular 1 UNITS/0.01 ML ML ONE (17:38)
[2017-11-05] MEDS: Insulin Reg-MEDIUM-Coverage SC SCH ×2 (17:38→22:43)
[2017-11-05 17:59] LABS: VENOUS BLOOD GAS BASE EXCESS -2.8 mmol/L (0.0-2.0); VENOUS BLOOD GAS PO2 80 mm/Hg (30-55); VENOUS BLOOD PH 7.38 (7.32-7.43)
[2017-11-05] MEDS: Aztreonam 1 Gm in NS 100mL 100 ML IVPB SCH (18:17)
--- NOTE | 2017-11-05 18:21 | CT ---
Date of service: 11/05/2017 PROCEDURE: CT Chest without contrast HISTORY: fever,c ough, sob COMPARISON: None available. TECHNIQUE: Contiguous axial images were obtained through the chest without intravenous contrast enhancement. Sagittal and coronal reconstructions were performed. Radiation dose (DLP): 711.1 mGy-cm. This CT exam was performed using one or more of the following dose reduction techniques: Automated exposure control, adjustment of the mA and/or kV according to patient size, and/or use of iterative reconstruction technique. FINDINGS: LUNGS: Extensive subpleural and bibasilar fibrotic changes. No focal consolidation. Visualized airway clear MEDIASTINUM: Unremarkable thoracic aorta. No aneurysm. Cardiomegaly. Main pulmonary artery unremarkable. No vascular congestion. Mediastinal lymphadenopathy, the largest include a precarinal node measuring 2.9 x 2.1 cm and a subcarinal node measuring 3.7 x 1.9 cm PLEURA: No pleural fluid. No pneumothorax. BONES: No fracture. No destructive lesion. UPPER ABDOMEN: Small hiatal hernia. 4.8 cm right upper pole cyst. OTHER FINDINGS: None. IMPRESSION: Chronic subpleural and bibasilar fibrotic changes. No focal consolidation or pleural effusion. Nonspecific mediastinal lymphadenopathy including 2.9 cm precarinal node and 3.7 cm subcarinal node.
[2017-11-05] MEDS: Azithromycin 500MG/NS 250ml 500 MG/250 ML BAG IVPB SCH (18:23)
[2017-11-05] MEDS ORDERED: Pneumococcal 23-Valent Vaccine IM ONE (18:42)
[2017-11-05] MEDS ORDERED: Influenza Vaccine 60 mcg/0.5 mL SYR (4YR UP) IM ONE (18:42)
--- NOTE | 2017-11-05 19:07 | PCM.SEPTIC ---
Sepsis Progress Note - Reassessment Type Date of Evaluation: 11/05/17 Time of Evaluation: 14:24 Reassessment Type: Non-invasive reassessment - Non Invasive Reassessment Were the most recent vital sign reviewed: Yes Vital Sign (Latest): Temp Pulse Resp BP Pulse Ox 99 F 130 H 20 109/72 94 L 11/05/17 18:23 11/05/17 18:40 11/05/17 18:30 11/05/17 18:23 11/05/17 18:40 Cardiovascular: Yes: Tachycardia Respiratory: No: Accessory Muscle Use, Rales, Rhonchi, Wheezing Capillary Refill: Normal (Less than 2 sec) Skin: Normal Color, Warm Was a bedside cardiovascular ultrasound performed within 6 hours after the presentation of septic shock: No Was a passive leg raise performed or was a fluid challenge performed within 6 hrs of the initial fluid bolus: No
[2017-11-06] MEDS: Aztreonam 1 Gm in NS 100mL 100 ML IVPB SCH ×4 (03:34→21:05)
[2017-11-06] MEDS: Pantoprazole 40 mg EC Tab PO SCH (05:49)
[2017-11-06] MEDS: Sodium Chloride 0.9% 1,000 ML IV SCH ×2 (05:52→08:41)
[2017-11-06 06:26] LABS: BASO # 0.01 K/mm3 (0.0-2.0); BASO % 0.1 % (0.0-3.0); EOS # 0.1 (0.0-0.7); EOS % 1.2 % (1.5-5.0); GRAN # 5.99 (1.4-6.5); GRAN % 78.8 % (50.0-68.0); LYMPH # 0.6 (1.2-3.4); LYMPH % 7.8 % (22.0-35.0); MEAN CELL VOLUME 87.6 fl (80.0-105.0); MEAN CORPUSCULAR HEMOGLOBIN 28.9 pg (25.0-35.0); MEAN PLATELET VOLUME 9.8 fl (7.0-11.0); MONO # 0.9 (0.1-0.6); MONO % 12.1 % (1.0-6.0); RBC 3.8 10^6/uL (3.5-6.1); RED CELL DISTRIBUTION WIDTH 12.7 % (11.5-14.5); WHITE BLOOD COUNT 7.6 10^3/ul (4.5-11.0)
[2017-11-06 06:43] LABS: ALBUMIN 2.9 g/dL (3.0-4.8); ALT/SGPT 19 U/L (7-56); AST/SGOT 17 U/L (14-36); BLOOD UREA NITROGEN 15 mg/dL (7-21); CALCIUM 7.9 mg/dL (8.4-10.5); GFR NON-AFRICAN AMERICAN 53
[2017-11-06] MEDS: Insulin Reg-MEDIUM-Coverage SC SCH ×4 (08:40→21:24)
--- NOTE | 2017-11-06 08:59 | CARD ---
APPROVED REPORT Date of service: 11/05/2017 EKG Measurement Heart [id number] <Conclusion> Sinus tachycardia Left ventricular hypertrophy No change except the rate is faster
[2017-11-06] MEDS ORDERED: Magnesium Sulfate 2 gm/50 ml 2 GM/50 ML BAG IVPB ONE (09:05)
[2017-11-06] MEDS: Sodium Chloride 0.45% 1,000 ML IV SCH (09:11)
[2017-11-06] MEDS: Levothyroxine 100 MCG TAB PO SCH (09:22)
[2017-11-06] MEDS: Azithromycin 500MG/NS 250ml 500 MG/250 ML BAG IVPB SCH (09:23)
[2017-11-06] MEDS: Linezolid 600 mg in D5W 300 ml 600 MG/300 ML BAG IVPB SCH ×2 (09:28→22:44)
--- NOTE | 2017-11-06 11:09 | PN ---
DATE: 11/06/2017 TANKER SERVICE ATTENDANT NOTE LOCATION: At [facility]. SUBJECTIVE: The patient is awake and alert. States that her breathing is a little bit better. Still has some shortness of breath. O2 support via nasal cannula and O2 saturations are good. The patient continues to have occasional cough and chest congestion. No nausea or vomiting. No diarrhea. No chest pain or abdominal pain. PHYSICAL EXAMINATION: VITAL SIGNS: Physical exam note that her temperature is 99, pulse is 112, respirations are 23 and BP is 158/86, O2 saturation is 91% on 2 L. HEENT: Head is atraumatic, normocephalic. Eyes reactive to light. Ears, nose and throat seemed to be within normal limits. NECK: Supple. No JVD. No thyroid enlargement. No lymph nodes. HEART: Regular rate and rhythm. Normal S1, S2. LUNGS: Reveal bilateral rhonchi. ABDOMEN: Soft. Decreased bowel sounds. GENITALIA AND RECTAL: Deferred. MUSCULOSKELETAL: No joint deformities. EXTREMITIES: Reveal trace lower extremity edema. NEUROLOGICAL: She seemed to be grossly intact. LABORATORY DATA: As far as her laboratories are concerned, her white count is 7.6, hemoglobin is 11, hematocrit 33.3 with platelets of 130,000. The patient's sodium is 138, potassium 3.6, chloride 105, CO2 of 25 with a BUN of 15, creatinine of 1 and a glucose of 125. IMPRESSION: As far as my impression, this patient has bilateral pneumonia with possible sepsis, has a history of hypertension, hyperlipidemia and obesity. PLAN: As far as our plan, we will continue with half normal saline. The patient is getting aztreonam as antibiotics. She is on subcu heparin and is getting her Lipitor and her Lopressor. The patient is also getting Norvasc, Protonix and her Synthroid. She is on Xopenex and azithromycin as well as Zofran p.r.n. We will continue to treat aggressively along with the other consultants and the primary care doctor. Bobby Estrella MD
--- NOTE | 2017-11-06 11:53 | PN ---
DATE: 11/06/2017 SUBJECTIVE: The patient is an 82-year-old female with a past medical history positive for mea-pzfslqf-dpltzpxjm diabetes mellitus, hypothyroidism, who was admitted to the Intensive Care Unit yesterday with a diagnosis of sepsis and pneumonia. The patient had received a flu vaccination 5 days prior to presentation and developed fevers, chills, shakes and nasal congestion. She is treated with Azactam 1 g every 8 hours currently, she has also received Zyvox 600 mg IV every 12 and azithromycin 250 mg intravenously daily. We are continuing with Xopenex nebulizer treatment and continuing with her regular medicines of Synthroid 100 mcg, Protonix 40 mg, Norvasc 5 mg, Lopressor 50 mg, Lipitor 5 mg. When seen today, the patient is awake, alert and oriented. She does however feel anxious being in the Intensive Care Unit and cannot wait to be moved to the hospital floor. Her lungs are clear anteriorly. Heart is regular. Abdomen is soft and nontender. This morning laboratory shows the white blood cell count to be 7.6 down from 12 yesterday, hemoglobin and hematocrit are 11 and 33.3. Also, slightly down from yesterday were probably the delusional effects from her IV fluids. Serum chemistries are unremarkable. We are continuing the patient's current medication. She is cleared for discharge from the Intensive Care Unit to the telemetry floor later on today as bed becomes available and the patient is to be reevaluated in the morning. Davidson Juárez MD
--- NOTE | 2017-11-06 11:59 | CP.PCM.CON ---
History of Present Illness - History of Present Illness History of Present Illness: 82 year old female with PMH of HTN, dyslipidemia, DM, obesity with BMI 33 came in to her PMD's office complaining of fever, cough and SOB for the past 3 days, associated with dyspnea on exertion as well and malaise. She complains of some runny nose as well but no sore throat. She denies headache or dizziness, no chest pain, no dysphagia, no nausea or vomiting, no abdominal pain, no diarrhea, no dysuria. CT chest does not show specific infiltrates but has fibrotic changes and questional mediastinal lymphadenopathy. The patient denies being on antibiotics recently and denies recent travel outside of [place] in the past 3 months. Infectious diseases consult is requested to further evaluate and manage. Review of Systems - Review of Systems All systems: reviewed and no additional remarkable complaints except (as per HPI) Past Patient History - Infectious Disease Hx of Infectious Diseases: None - Tetanus Immunizations Tetanus Immunization: Unknown - Past Social History Smoking Status: Never Smoked - CARDIAC Hx Cardiac Disorders: Yes Hx Hypercholesterolemia: Yes Hx Hypertension: Yes - PULMONARY Hx Respiratory Disorders: Yes Hx Pneumonia: Yes - NEUROLOGICAL Hx Neurological Disorder: No - HEENT Hx HEENT Problems: Yes (R ear decreased hearing) - RENAL Hx Chronic Kidney Disease: No - ENDOCRINE/METABOLIC Hx Endocrine Disorders: Yes Hx Diabetes Mellitus Type 2: Yes Hx Hypothyroidism: Yes - HEMATOLOGICAL/ONCOLOGICAL Hx Blood Disorders: No - INTEGUMENTARY Hx Dermatological Problems: No - MUSCULOSKELETAL/RHEUMATOLOGICAL Hx Musculoskeletal Disorders: Yes (2 BACK SX,2 LEG SX.) Hx Falls: No - GASTROINTESTINAL Hx Gastrointestinal Disorders: No - GENITOURINARY/GYNECOLOGICAL Hx Genitourinary Disorders: No - PSYCHIATRIC Hx Psychophysiologic Disorder: No Hx Depression: No Hx Emotional Abuse: No Hx Physical Abuse: No Hx Substance Use: No - SURGICAL HISTORY Hx Orthopedic Surgery: Yes (2 back surgery and 2 leg surgery) - ANESTHESIA Hx Anesthesia: Yes Hx Anesthesia Reactions: No Hx Malignant Hyperthermia: No Meds Allergies/Adverse Reactions: Allergies Allergy/AdvReac Type Severity Reaction Status Date / Time Penicillins Allergy SWELLING Verified 11/05/17 16:15 - Medications Medications: Current Medications Amlodipine Besylate (Norvasc) 5 mg PO DAILY [facility] Atorvastatin Calcium (Lipitor) 5 mg PO DAILY [facility] Heparin Sodium (Porcine) (Heparin) 5,000 units SC Q8 [facility]; Protocol Last Admin: 11/06/17 05:49 Dose: 5,000 units Sodium Chloride (Sodium Chloride 0.9%) 1,000 mls @ 125 mls/hr IV .Q8H [facility] Last Admin: 11/06/17 05:52 Dose: 125 mls/hr Azithromycin (Zithromax 500mg In Ns) 500 mg in 250 mls @ 167 mls/hr IVPB DAILY [facility]; Protocol Last Admin: 11/05/17 18:23 Dose: 167 mls/hr Vancomycin HCl (Vancomycin 1gm) 1 gm in 250 mls @ 167 mls/hr IVPB DAILY [facility]; Protocol Insulin Human Regular (Humulin R Med) 0 units SC ACHS [facility]; Protocol Last Admin: 11/05/17 22:43 Dose: Not Given Levalbuterol HCl (Xopenex) 0.63 mg IH [id number] PRN PRN Reason: Shortness of Breath Levothyroxine Sodium (Synthroid) 100 mcg PO DAILY [facility] Metoprolol Tartrate (Lopressor) 50 mg PO DAILY [facility] Pantoprazole Sodium (Protonix Ec Tab) 40 mg PO 0600 [facility] Last Admin: 11/06/17 05:49 Dose: 40 mg Physical Exam - Constitutional Appears: No Acute Distress, Chronically Ill - Head Exam Head Exam: NORMAL INSPECTION - ENT Exam ENT Exam: Mucous Membranes Moist - Neck Exam Neck exam: Negative for: Meningismus - Respiratory Exam Respiratory Exam: Decreased Breath Sounds, Rales (at the bases) - Cardiovascular Exam Cardiovascular Exam: +S1, +S2 - GI/Abdominal Exam GI & Abdominal Exam: Soft. absent: Tenderness Results - Vital Signs Recent Vital Signs: Last Vital Signs Temp 99 F 11/05/17 18:23 Pulse 115 H 11/06/17 07:30 Resp 22 11/06/17 07:30 BP 123/67 11/06/17 06:00 Pulse Ox 96 11/06/17 07:30 - Labs Result Diagrams: 11/06/17 05:45 11/06/17 05:45 Labs: Laboratory Results - last 24 hr 11/05/17 11/05/17 11/05/17 14:30 14:30 14:30 WBC 12.0 H RBC 4.49 Hgb 13.5 Hct 38.9 MCV 86.6 MCH 30.1 MCHC 34.7 RDW 12.7 Plt Count 164 MPV 10.5 Gran % 84.6 H Lymph % (Auto) 3.8 L Swain % (Auto) 11.4 H Eos % (Auto) 0.1 L Baso % (Auto) 0.1 Gran # 10.13 H Lymph # (Auto) 0.5 L Swain # (Auto) 1.4 H Eos # (Auto) 0.0 Baso # (Auto) 0.01 Neutrophils % (Manual) 82 H Band Neutrophils % 2 Lymphocytes % (Manual) 6 L Monocytes % (Manual) 10 H Platelet Evaluation Normal PT 15.3 H INR 1.33 APTT 25.6 pCO2 pO2 HCO3 ABG pH ABG Total CO2 ABG O2 Saturation ABG Base Excess ABG Potassium VBG pH VBG pCO2 VBG HCO3 VBG Total CO2 VBG O2 Sat (Calc) VBG Base Excess VBG Potassium Sodium 133 Chloride 97 L Glucose Lactate FiO2 Potassium 3.6 Carbon Dioxide 23 Anion Gap 17 BUN 26 H Creatinine 1.4 H Est GFR ( Amer) 44 Est GFR (Non-Af Amer) 36 POC Glucose (mg/dL) Random Glucose 191 H Calcium 9.2 Phosphorus Magnesium 1.7 Total Bilirubin 1.6 H AST 22 ALT 19 Alkaline Phosphatase 91 Troponin I < 0.01 NT-Pro-B Natriuret Pep 658 H Total Protein 7.4 Albumin 3.9 Globulin 3.5 Albumin/Globulin Ratio 1.1 Procalcitonin Arterial Blood Potassium Venous Blood Potassium Urine Color Urine Appearance Urine pH Ur Specific Milo Urine Protein Urine Glucose (UA) Urine Ketones Urine Blood Urine Nitrate Urine Bilirubin Urine Urobilinogen Ur Leukocyte Esterase Urine RBC Urine WBC Ur Epithelial Cells Urine Bacteria Influenza Typ A,B (EIA) 11/05/17 11/05/17 11/05/17 14:30 14:30 15:50 WBC RBC Hgb Hct MCV MCH MCHC RDW Plt Count MPV Gran % Lymph % (Auto) Swain % (Auto) Eos % (Auto) Baso % (Auto) Gran # Lymph # (Auto) Swain # (Auto) Eos # (Auto) Baso # (Auto) Neutrophils % (Manual) Band Neutrophils % Lymphocytes % (Manual) Monocytes % (Manual) Platelet Evaluation PT INR APTT pCO2 pO2 55 HCO3 ABG pH ABG Total CO2 ABG O2 Saturation ABG Base Excess ABG Potassium VBG pH 7.37 VBG pCO2 40.0 VBG HCO3 23.1 VBG Total CO2 24.3 VBG O2 Sat (Calc) 92.1 H VBG Base Excess -2.0 L VBG Potassium 3.7 Sodium 131.0 L Chloride 99.0 Glucose 200 H Lactate 2.2 H FiO2 21.0 Potassium Carbon Dioxide Anion Gap BUN Creatinine Est GFR ( Amer) Est GFR (Non-Af Amer) POC Glucose (mg/dL) Random Glucose Calcium Phosphorus Magnesium Total Bilirubin AST ALT Alkaline Phosphatase Troponin I NT-Pro-B Natriuret Pep Total Protein Albumin Globulin Albumin/Globulin Ratio Procalcitonin Arterial Blood Potassium Venous Blood Potassium 3.7 Urine Color Yellow Urine Appearance Clear Urine pH 6.0 Ur Specific Milo 1.015 Urine Protein 30 H Urine Glucose (UA) Negative Urine Ketones 15 H Urine Blood Negative Urine Nitrate Positive H Urine Bilirubin Negative Urine Urobilinogen 0.2 Ur Leukocyte Esterase Small H Urine RBC Negative Urine WBC 2 - 5 Ur Epithelial Cells 1 - 3 Urine Bacteria Large Influenza Typ A,B (EIA) Negative for flu a/b 11/05/17 11/05/17 11/05/17 16:31 17:34 17:49 WBC RBC Hgb Hct MCV MCH MCHC RDW Plt Count MPV Gran % Lymph % (Auto) Swain % (Auto) Eos % (Auto) Baso % (Auto) Gran # Lymph # (Auto) Swain # (Auto) Eos # (Auto) Baso # (Auto) Neutrophils % (Manual) Band Neutrophils % Lymphocytes % (Manual) Monocytes % (Manual) Platelet Evaluation PT INR APTT pCO2 27 L pO2 66.0 L 80 H HCO3 17.9 L ABG pH 7.43 ABG Total CO2 18.7 L ABG O2 Saturation 97.6 ABG Base Excess -4.9 L ABG Potassium 2.9 L VBG pH 7.38 VBG pCO2 37.0 L VBG HCO3 21.9 VBG Total CO2 23.0 VBG O2 Sat (Calc) 98.4 H VBG Base Excess -2.8 L VBG Potassium 3.6 Sodium 135.0 132.0 Chloride 108.0 H 104.0 Glucose 181 H 200 H Lactate 1.9 1.8 FiO2 21.0 21.0 Potassium Carbon Dioxide Anion Gap BUN Creatinine Est GFR ( Amer) Est GFR (Non-Af Amer) POC Glucose (mg/dL) 185 H Random Glucose Calcium Phosphorus Magnesium Total Bilirubin AST ALT Alkaline Phosphatase Troponin I NT-Pro-B Natriuret Pep Total Protein Albumin Globulin Albumin/Globulin Ratio Procalcitonin Arterial Blood Potassium 2.9 L Venous Blood Potassium 3.6 Urine Color Urine Appearance Urine pH Ur Specific Milo Urine Protein Urine Glucose (UA) Urine Ketones Urine Blood Urine Nitrate Urine Bilirubin Urine Urobilinogen Ur Leukocyte Esterase Urine RBC Urine WBC Ur Epithelial Cells Urine Bacteria Influenza Typ A,B (EIA) 11/05/17 11/06/17 11/06/17 18:02 05:45 05:45 WBC 7.6 D RBC 3.80 Hgb 11.0 L D Hct 33.3 L MCV 87.6 MCH 28.9 MCHC 33.0 RDW 12.7 Plt Count 130 MPV 9.8 Gran % 78.8 H Lymph % (Auto) 7.8 L Swain % (Auto) 12.1 H Eos % (Auto) 1.2 L Baso % (Auto) 0.1 Gran # 5.99 Lymph # (Auto) 0.6 L Swain # (Auto) 0.9 H Eos # (Auto) 0.1 Baso # (Auto) 0.01 Neutrophils % (Manual) Band Neutrophils % Lymphocytes % (Manual) Monocytes % (Manual) Platelet Evaluation PT INR APTT pCO2 pO2 HCO3 ABG pH ABG Total CO2 ABG O2 Saturation ABG Base Excess ABG Potassium VBG pH VBG pCO2 VBG HCO3 VBG Total CO2 VBG O2 Sat (Calc) VBG Base Excess VBG Potassium Sodium 138 Chloride 105 Glucose Lactate FiO2 Potassium 3.6 Carbon Dioxide 25 Anion Gap 11 BUN 15 Creatinine 1.0 Est GFR ( Amer) > 60 Est GFR (Non-Af Amer) 53 POC Glucose (mg/dL) Random Glucose 125 H Calcium 7.9 L Phosphorus 2.0 L Magnesium 1.6 L Total Bilirubin 1.0 AST 17 ALT 19 Alkaline Phosphatase 64 Troponin I NT-Pro-B Natriuret Pep Total Protein 5.8 Albumin 2.9 L Globulin 2.9 Albumin/Globulin Ratio 1.0 L Procalcitonin 0.56 H Arterial Blood Potassium Venous Blood Potassium Urine Color Urine Appearance Urine pH Ur Specific Milo Urine Protein Urine Glucose (UA) Urine Ketones Urine Blood Urine Nitrate Urine Bilirubin Urine Urobilinogen Ur Leukocyte Esterase Urine RBC Urine WBC Ur Epithelial Cells Urine Bacteria Influenza Typ A,B (EIA) Assessment & Plan - Assessment and Plan (Free Text) Plan: Assessment sepsis due to acute bronchitis R/O bilateral pneumonia (fibrotic changes at the bases on CT scan) mediastinal lymph node, R/O reactive HTN dyslipidemia DM obesity with BMI 33 Plan Will start the patient on Zyvox, Zithromax and Azactam pending blood, sputum cx, PCT, urine Legionella Ag follow up Pulmonary recommendations regarding mediastinal lymph node will monitor clinically
--- NOTE | 2017-11-06 12:54 | HP ---
HISTORY OF PRESENT ILLNESS: The patient is an 82-year-old female who presented to our office for an emergency office visit after complaining of fever, chills, runny nose, dry cough that was worsening over the past several days. She claims she had received a flu vaccination 4 days earlier. After evaluation in the office visit, hospitalization was suggested. So the patient was brought to the emergency room by her where she was evaluated and admitted to the Intensive Care Unit with a diagnosis of sepsis and lobar pneumonia. PAST MEDICAL HISTORY: The patient is known to have a past medical history positive for hypertension. She has decreased hearing, pud-[id number] diabetes mellitus, hypothyroidism. SOCIAL HISTORY: She never smoked, is a nonalcoholic drinker and is . ALLERGIES: SHE IS KNOWN TO BE ALLERGIC TO PENICILLIN. MEDICATIONS AT THE TIME OF ADMISSION: Included Lipitor 5 mg daily, glipizide 5 mg daily, Levoxyl 100 mcg daily, Cozaar 100 mg daily, metoprolol tartrate 50 mg daily and amlodipine 5 mg daily. REVIEW OF SYSTEMS: Otherwise unremarkable. PHYSICAL EXAMINATION: VITAL SIGNS: In the emergency room, her blood pressure is 141/91, heart rate is 135 and she is afebrile at 98.7 degrees Fahrenheit. HEAD, EYES, EARS, NOSE AND THROAT: Unremarkable. NECK: Supple with no lymphadenopathy. No goiter. LUNGS: Has some scattered wheezes bilaterally. HEART: Regular. No murmurs are appreciated. ABDOMEN: Round, obese, soft, nontender with no organomegaly. EXTREMITIES: Free of cyanosis, clubbing or edema. NEUROLOGIC: The patient is awake, alert and oriented with no focal neurological signs. An EKG showed sinus tachycardia with left atrial enlargement and left ventricular hypertrophy. CAT scan of the chest showed subpleural and bilateral fibrotic changes. There were some nonspecific mediastinal lymph nodes noted also. Blood work shows the procalcitonin to be mildly elevated at 0.56, normal being 0.49. Urinalysis was positive for mild urinary tract infection. White blood cell count was 7.6, hemoglobin and hematocrit are 11 and 33.3 respectively, platelet count is 130. Sodium is 138, potassium 3.6, blood urea nitrogen 15, creatinine 0.5. Glucose is 125. So the patient was started on IV fluids, received a dose of Levaquin and vancomycin and admitted to the Intensive Care Unit. She will be reevaluated in the morning. Davidson Juárez MD [facility] # [id number]
[2017-11-06] MEDS ORDERED: Vancomycin 1gm in NS 250ml 1 GM/250 ML BAG IVPB SCH (15:45)
[2017-11-07] MEDS: Sodium Chloride 0.45% 1,000 ML IV SCH ×2 (02:54→12:08)
[2017-11-07] MEDS: Aztreonam 1 Gm in NS 100mL 100 ML IVPB SCH ×3 (05:39→21:12)
[2017-11-07] MEDS: Pantoprazole 40 mg EC Tab PO SCH (05:40)
[2017-11-07 06:42] LABS: BASO # 0.03 K/mm3 (0.0-2.0); BASO % 0.4 % (0.0-3.0); EOS # 0.3 (0.0-0.7); EOS % 3.7 % (1.5-5.0); GRAN # 5.47 (1.4-6.5); GRAN % 72.5 % (50.0-68.0); HEMOGLOBIN 10.7 g/dL (12.0-16.0); LYMPH # 0.7 (1.2-3.4); LYMPH % 9.8 % (22.0-35.0); MEAN CELL VOLUME 87.3 fl (80.0-105.0); MEAN CORPUSCULAR HGB CONC 33.2 g/dl (31.0-37.0); MEAN PLATELET VOLUME 9.9 fl (7.0-11.0); MONO % 13.6 % (1.0-6.0); RBC 3.69 10^6/uL (3.5-6.1); RED CELL DISTRIBUTION WIDTH 12.7 % (11.5-14.5); WHITE BLOOD COUNT 7.6 10^3/ul (4.5-11.0)
[2017-11-07 07:19] LABS: ALB/GLOB RATIO 1.1 (1.1-1.8); ALT/SGPT 30 U/L (7-56); AST/SGOT 31 U/L (14-36); BLOOD UREA NITROGEN 10 mg/dL (7-21); GFR NON-AFRICAN AMERICAN > 60
[2017-11-07] MEDS: Insulin Reg-MEDIUM-Coverage SC SCH ×4 (08:26→21:36)
[2017-11-07] MEDS: Azithromycin 500MG/NS 250ml 500 MG/250 ML BAG IVPB SCH (09:36)
[2017-11-07] MEDS: Linezolid 600 mg in D5W 300 ml 600 MG/300 ML BAG IVPB SCH ×2 (09:36→21:12)
[2017-11-07] MEDS: Levothyroxine 100 MCG TAB PO SCH (09:37)
--- NOTE | 2017-11-07 10:37 | CP.PCM.PN ---
Subjective - Date & Time of Evaluation Date of Evaluation: 11/07/17 Time of Evaluation: 09:25 - Subjective Subjective: No fevers, but still having cough with phlegm that is blood-streaked, no nausea, no diarrhea. Objective - Vital Signs/Intake and Output Vital Signs (last 24 hours): Temp Pulse Resp BP Pulse Ox 99.2 F 96 H 22 138/78 98 11/07/17 06:00 11/07/17 06:00 11/07/17 06:00 11/07/17 06:00 11/07/17 06:00 Intake and Output: 11/06/17 11/07/17 18:59 06:59 Intake Total 960 1900 Output Total 800 Balance 160 1900 - Medications Medications: Current Medications Acetaminophen (Tylenol 325mg Tab) 650 mg PO Q6H PRN PRN Reason: Pain, moderate (4-7) Last Admin: 11/06/17 21:12 Dose: 650 mg Amlodipine Besylate (Norvasc) 5 mg PO DAILY [facility] Last Admin: 11/06/17 09:21 Dose: 5 mg Atorvastatin Calcium (Lipitor) 5 mg PO DAILY [facility] Last Admin: 11/06/17 09:22 Dose: 5 mg Heparin Sodium (Porcine) (Heparin) 5,000 units SC Q8 [facility]; Protocol Last Admin: 11/07/17 05:39 Dose: 5,000 units Azithromycin (Zithromax 500mg In Ns) 500 mg in 250 mls @ 167 mls/hr IVPB DAILY [facility]; Protocol Last Admin: 11/06/17 09:23 Dose: 167 mls/hr Aztreonam (Azactam 1 Gm) 100 mls @ 100 mls/hr IVPB Q8 [facility]; Protocol Stop: 11/13/17 08:46 Last Admin: 11/07/17 05:39 Dose: 100 mls/hr Linezolid (Zyvox 600mg/300ml D5w) 600 mg in 300 mls @ 200 mls/hr IVPB Q12 [facility]; Protocol Stop: 11/13/17 10:01 Last Admin: 11/06/17 22:44 Dose: 200 mls/hr Sodium Chloride (Sodium Chloride 0.45%) 1,000 mls @ 75 mls/hr IV .[id number] [facility] Last Admin: 11/07/17 02:54 Dose: 75 mls/hr Insulin Human Regular (Humulin R Med) 0 units SC ACHS [facility]; Protocol Last Admin: 11/06/17 21:24 Dose: Not Given Levalbuterol HCl (Xopenex) 0.63 mg IH [id number] PRN PRN Reason: Shortness of Breath Levothyroxine Sodium (Synthroid) 100 mcg PO DAILY [facility] Last Admin: 11/06/17 09:22 Dose: 100 mcg Metoprolol Tartrate (Lopressor) 50 mg PO DAILY [facility] Last Admin: 11/06/17 09:21 Dose: 50 mg Pantoprazole Sodium (Protonix Ec Tab) 40 mg PO 0600 [facility] Last Admin: 11/07/17 05:40 Dose: 40 mg - Labs Labs: 11/07/17 06:00 11/06/17 05:45 PT 15.3 SECONDS (9.4-12.5) H 11/05/17 14:30 INR 1.33 11/05/17 14:30 APTT 25.6 Seconds (25.1-36.5) 11/05/17 14:30 - Constitutional Appears: Chronically Ill - Head Exam Head Exam: NORMAL INSPECTION - Neck Exam Neck Exam: absent: Meningismus - Respiratory Exam Respiratory Exam: Decreased Breath Sounds - Cardiovascular Exam Cardiovascular Exam: +S1, +S2 - GI/Abdominal Exam GI & Abdominal Exam: Soft. absent: Tenderness Assessment and Plan - Assessment and Plan (Free Text) Plan: Assessment sepsis due to acute bronchitis R/O bilateral pneumonia (fibrotic changes at the bases on CT scan) mediastinal lymph node, R/O reactive HTN dyslipidemia DM obesity with BMI 33 Plan continue Zyvox, Zithromax and Azactam day 2 pending final blood, sputum cx results; PCT is slightly elevated at 0.72, urine Legionella Ag is pending follow up Pulmonary recommendations regarding mediastinal lymph node will continue to monitor clinically and monitor her sputum since it is currently blood-streaked
[2017-11-07] MEDS: guaiFENesin-DM 600-30 mg ER Tab PO SCH ×2 (12:07→18:27)
[2017-11-07] MEDS ORDERED: Levalbuterol 0.63 MG/3 ML Inhal Soln UD IH PRN (14:14)
[2017-11-07] MEDS: Potassium Chloride 20 mEq ER Tab PO SCH (15:52)
[2017-11-07] MEDS: Levalbuterol 0.63 MG/3 ML Inhal Soln UD IH SCH (19:34)
[2017-11-08] MEDS: Sodium Chloride 0.45% 1,000 ML IV SCH (01:52)
[2017-11-08] MEDS: Levalbuterol 0.63 MG/3 ML Inhal Soln UD IH SCH ×4 (02:08→19:35)
--- NOTE | 2017-11-08 03:16 | CON ---
DATE: 11/07/2017 REASON FOR CONSULTATION: Sinus pauses and significant bradycardia with periods of 2:1 conduction. 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 The patient was in sinus tachycardia and was placed on Lopressor 50 mg daily. The patient was transferred last night to telemetry and was noted this afternoon on telemetry monitoring to have periods of sinus bradycardia and sinus pauses, the longest was 3.2 seconds. The patient did today complain of dizziness, but no reported syncope. The patient is unaware of any prior cardiac history. SOCIAL HISTORY: The patient is nonsmoker. 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 She is independent takes care of herself. MEDICATIONS: Azactam 1 g intravenously 8 hours, heparin 5000 units subcutaneously 8 hours, Lipitor 5 mg once a day, Lopressor 50 mg once a day, Mucinex DM 1 tablet twice a day, Norvasc 5 mg once a day, Protonix 40 mg once a day, half normal saline 75 mL an hour, Synthroid 100 mcg once a day, Xopenex inhaler every 4 hour p.r.n., Zithromax 500 mg intravenously daily and Zyvox 600 intravenously every 12 hour. REVIEW OF SYSTEMS: No retrosternal chest pain. No history of stroke or heart attack in the past according to the patient. PHYSICAL EXAMINATION: GENERAL: The patient is an elderly female who is mildly tachypneic on nasal O2. VITAL SIGNS: Blood pressure 119/64, heart rate 86, temperature 99, respiration 20. On admission the patient's highest temperature was 101.9. HEENT: Normocephalic. CHEST: Bibasilar coarse crepitations and diffuse bilateral rhonchi. HEART: S1 and S2 regular. ABDOMEN: Soft. EXTREMITIES: No edema. LABORATORY DATA: Today's hemoglobin and hematocrit 10.7 and 32.2, white count 7.6, platelet count 139,000, white count on admission was 12,000. SMA-7; sodium 135, potassium 3.5, chloride 105, CO2 25, glucose 134, BUN and creatinine 0.8. One set of troponin on admission was within normal limits. Chest x-ray revealed bilateral lower lobe infiltrate as well as [id number] CHF. Chest CT scan revealed chronic subpleural and bibasilar fibrotic changes. No focal consolidation of pleural effusion, nonspecific mediastinal lymphadenopathy. EKG revealed sinus tachycardia at rate of 132 per minute, possible left ventricular hypertrophy. ASSESSMENT: 1. Bilateral pneumonia. 2. Sinus bradycardia. 3. Rule out underlying congestive heart failure. 4. Hypothyroidism. 5. Hypokalemia. 6. Uncontrolled diabetes mellitus. RECOMMENDATIONS: Continue current IV Azactam, IV Zithromax, and IV Zyvox. Continue Synthroid at 100 mcg daily. Start Lasix 40 mL intravenously and K-Dur 20 mEq orally daily. Discontinue Lopressor. Obtain an echocardiogram. Follow up blood cultures which are negative after 48 hours. Dominick Dillon MD
[2017-11-08] MEDS: Levothyroxine 100 MCG TAB PO SCH (05:08)
[2017-11-08] MEDS: Pantoprazole 40 mg EC Tab PO SCH (05:08)
[2017-11-08] MEDS: Aztreonam 1 Gm in NS 100mL 100 ML IVPB SCH ×3 (05:09→22:59)
[2017-11-08 06:58] LABS: ALBUMIN 3.1 g/dL (3.0-4.8); ALT/SGPT 31 U/L (7-56); AST/SGOT 29 U/L (14-36); BLOOD UREA NITROGEN 10 mg/dL (7-21); GFR NON-AFRICAN AMERICAN > 60
[2017-11-08 07:14] LABS: BASO # 0.02 K/mm3 (0.0-2.0); BASO % 0.2 % (0.0-3.0); EOS # 0.2 (0.0-0.7); EOS % 1.8 % (1.5-5.0); GRAN # 6.6 (1.4-6.5); GRAN % 76.2 % (50.0-68.0); HEMOGLOBIN 10.5 g/dL (12.0-16.0); LYMPH # 0.8 (1.2-3.4); LYMPH % 8.9 % (22.0-35.0); MEAN CELL VOLUME 87.2 fl (80.0-105.0); MEAN CORPUSCULAR HEMOGLOBIN 29.2 pg (25.0-35.0); MEAN CORPUSCULAR HGB CONC 33.4 g/dl (31.0-37.0); MEAN PLATELET VOLUME 10.2 fl (7.0-11.0); MONO # 1.1 (0.1-0.6); MONO % 12.9 % (1.0-6.0); RBC 3.6 10^6/uL (3.5-6.1); RED CELL DISTRIBUTION WIDTH 12.6 % (11.5-14.5); WHITE BLOOD COUNT 8.7 10^3/ul (4.5-11.0)
[2017-11-08] MEDS: Insulin Reg-MEDIUM-Coverage SC SCH ×4 (07:30→23:32)
--- NOTE | 2017-11-08 08:52 | PN ---
DATE: 11/07/2017 SUBJECTIVE: The patient is an 82-year-old female with a past medical history positive for zun-ntsabfa-jrfddlazk diabetes mellitus and hypothyroidism who was admitted to the Intensive Care Unit on 11/05/2017 with sepsis and lobar pneumonia. During the hospital stay, the patient is slowly improving. She was anxious from being on the Intensive Care Unit and after the patient was evaluated yesterday, she was transferred to the telemetry floor. She is being followed by Infectious Disease and is receiving Zyvox and azithromycin as well as Azactam for her lobar pneumonia/bronchitis. When seen today, the patient is lying in bed. She has been coughing up thick heavy yellow sputum. She said that on arising this morning she was practically choking on it. The patient's is at bedside and her case was discussed with him as well. PHYSICAL EXAMINATION: LUNGS: There is a slight wheeze on inspiration. HEART: Regular. ABDOMEN: Soft and nontender. EXTREMITIES: Free of cyanosis, clubbing or edema. Today, temperature is 99.2, blood pressure is 138/78, heart rate is 96. LABORATORY DATA: Morning laboratory show the white blood cell count to be 7.6, hemoglobin and hematocrit are 10.7 and 32.2, platelet count is 139. Sodium is 135, potassium 3.5, blood urea nitrogen is 10, creatinine is 0.8. We will be starting the patient on antitussive for her comfort. Continuing with the triple antibiotic as mentioned above. The patient to be reevaluated in the morning. Davidson Juárez MD
[2017-11-08] MEDS: guaiFENesin-DM 600-30 mg ER Tab PO SCH ×2 (10:35→18:43)
[2017-11-08] MEDS: Potassium Chloride 20 mEq ER Tab PO SCH ×2 (10:37→18:43)
[2017-11-08] MEDS: Azithromycin 500MG/NS 250ml 500 MG/250 ML BAG IVPB SCH (10:37)
[2017-11-08] MEDS: Linezolid 600 mg in D5W 300 ml 600 MG/300 ML BAG IVPB SCH (10:38)
--- NOTE | 2017-11-08 12:02 | PN ---
DATE: 11/08/2017 DAILY PROGRESS NOTE SUBJECTIVE: The patient is an 82-year-old female with a past medical history positive for noninsulin-dependent diabetes mellitus and hypothyroidism, who was admitted to the Intensive Care Unit on 11/05/2017 with sepsis and lobar pneumonia. During the hospital stay, the patient is slowly improving. However, this morning she was seen on the telemetry floor, she seemed visibly short of breath just while attempting morning care. She is being followed by Infectious Disease and receiving Zyvox and azithromycin and Azactam for her lobar pneumonia/bronchitis. On physical exam today, her lungs showed rales one half way up bilaterally. Heart is regular. Morning laboratories show the white blood cell count to be normal at 8.7, hemoglobin and hematocrit are 10.5 and 31.4. Potassium is slightly depressed at 3.2, sodium is 135, BUN and creatinine are 10 and 0.9 respectively. Urine cultures grew E. coli, which are resistant to Cipro and ampicillin. 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 An echocardiogram is ordered and has not yet done. So I will be increasing her potassium supplements from once a day to twice a day. We are continuing with the Zyvox, azithromycin and Azactam for her pneumonia and bronchitis. I will be adding Zaroxolyn 5 mg to her order to her regimen because of her apparent fluid overload and I am stopping her intravenous fluid, which she had been receiving at 75 mL an hour. The patient is to be reevaluated in the morning. Davidson Juárez MD
--- NOTE | 2017-11-08 13:28 | CP.PCM.PN ---
Subjective - Date & Time of Evaluation Date of Evaluation: 11/08/17 Time of Evaluation: 10:05 - Subjective Subjective: Comfortable in bed, still with cough but a little better, blood streaks in the sputum is less, no fevers overnight. Objective - Vital Signs/Intake and Output Vital Signs (last 24 hours): Temp Pulse Resp BP Pulse Ox 98.0 F 93 H 20 121/67 94 L 11/08/17 05:35 11/08/17 05:35 11/08/17 05:35 11/08/17 05:35 11/08/17 05:35 Intake and Output: 11/07/17 11/08/17 18:59 06:59 Intake Total 2800 Output Total 400 Balance 2400 - Medications Medications: Current Medications Acetaminophen (Tylenol 325mg Tab) 650 mg PO Q6H PRN PRN Reason: Pain, moderate (4-7) Last Admin: 11/06/17 21:12 Dose: 650 mg Amlodipine Besylate (Norvasc) 5 mg PO DAILY [facility] Last Admin: 11/07/17 09:37 Dose: 5 mg Atorvastatin Calcium (Lipitor) 5 mg PO DAILY [facility]WIN Last Admin: 11/07/17 09:36 Dose: 5 mg Furosemide (Lasix) 40 mg IVP DAILY [facility] Last Admin: 11/07/17 15:52 Dose: 40 mg Guaifenesin/Dextromethorphan (Mucinex-Dm 600-30 Mg) 1 tab PO BID [facility] Last Admin: 11/07/17 18:27 Dose: 1 tab Heparin Sodium (Porcine) (Heparin) 5,000 units SC Q8 [facility]; Protocol Last Admin: 11/08/17 05:08 Dose: 5,000 units Azithromycin (Zithromax 500mg In Ns) 500 mg in 250 mls @ 167 mls/hr IVPB DAILY [facility]; Protocol Last Admin: 11/07/17 09:36 Dose: 167 mls/hr Aztreonam (Azactam 1 Gm) 100 mls @ 100 mls/hr IVPB Q8 [facility]; Protocol Stop: 11/13/17 08:46 Last Admin: 11/08/17 05:09 Dose: 100 mls/hr Linezolid (Zyvox 600mg/300ml D5w) 600 mg in 300 mls @ 200 mls/hr IVPB Q12 [facility]; Protocol Stop: 11/13/17 10:01 Last Admin: 11/07/17 21:12 Dose: 200 mls/hr Sodium Chloride (Sodium Chloride 0.45%) 1,000 mls @ 75 mls/hr IV .[id number] [facility] Last Admin: 11/08/17 01:52 Dose: 75 mls/hr Insulin Human Regular (Humulin R Med) 0 units SC ACHS [facility]; Protocol Last Admin: 11/07/17 21:36 Dose: Not Given Levalbuterol HCl (Xopenex) 0.63 mg IH [id number] [facility] Last Admin: 11/08/17 02:08 Dose: 0.63 mg Levalbuterol HCl (Xopenex) 0.63 mg IH [id number] PRN PRN Reason: Shortness of Breath Last Admin: 11/07/17 16:23 Dose: 0.63 mg Levothyroxine Sodium (Synthroid) 100 mcg PO 0600 [facility] Last Admin: 11/08/17 05:08 Dose: 100 mcg Pantoprazole Sodium (Protonix Ec Tab) 40 mg PO 0600 [facility] Last Admin: 11/08/17 05:08 Dose: 40 mg Potassium Chloride (K-Dur 20 Meq Er Tab) 20 meq PO BRK [facility] Last Admin: 11/07/17 15:52 Dose: 20 meq - Labs Labs: 11/07/17 06:00 11/07/17 06:00 PT 15.3 SECONDS (9.4-12.5) H 11/05/17 14:30 INR 1.33 11/05/17 14:30 APTT 25.6 Seconds (25.1-36.5) 11/05/17 14:30 - Constitutional Appears: Chronically Ill - Head Exam Head Exam: NORMAL INSPECTION - Respiratory Exam Respiratory Exam: Decreased Breath Sounds - Cardiovascular Exam Cardiovascular Exam: +S1, +S2 - GI/Abdominal Exam GI & Abdominal Exam: Soft. absent: Tenderness Assessment and Plan - Assessment and Plan (Free Text) Plan: Assessment sepsis due to acute bronchitis R/O bilateral pneumonia (fibrotic changes at the bases on CT scan) mediastinal lymph node, R/O reactive HTN dyslipidemia DM obesity with BMI 33 Plan continue Zyvox, Zithromax and Azactam day 3 pending final sputum cx results; blood cx are negative; PCT is slightly elevated at 0.72, urine Legionella Ag is pending follow up Pulmonary recommendations regarding mediastinal lymph node will continue to monitor clinically and monitor her sputum since it is currently blood-streaked - chest CT did not show lung mass or cavity
[2017-11-08] MEDS ORDERED: Potassium Chloride 20 mEq ER Tab PO ONE (14:00)
[2017-11-08] MEDS: metOLazone 5 MG TAB PO SCH (14:19)
--- NOTE | 2017-11-08 17:16 | PN ---
DATE: 11/08/2017 REASON FOR THE CONSULTATION: Sinus pause, bradycardia, on beta-calvin, admitted with possible pneumonia in the ICU. SUBJECTIVE: The patient denies any chest pain. Denies any shortness of breath. Denies any palpitation. PHYSICAL EXAMINATION: VITAL SIGNS: Temperature afebrile, heart rate 92, and blood pressure 141/78. HEENT: PERRLA. Extraocular muscles intact. NECK: Supple. No carotid bruit. No thyromegaly. CHEST: Clear to auscultation. HEART: S1 and S2, regular. ABDOMEN: Soft. EXTREMITIES: Clubbing and cyanosis negative. LABORATORY DATA: Blood workup as follows; WBC 8.7, hemoglobin 10.5, hematocrit 31.4, and platelet count 175. Chemistry shows sodium 135, potassium 3.2, chloride 100, carbon dioxide 28, anion gap of 11. BUN 10, creatinine 0.9. Telemetry shows normal sinus, heart rate 84. IMPRESSION: An 82-year-old female with past medical history significant for hypertension, hypothyroidism, diabetes mellitus, admitted with bilateral pneumonia. The patient was at home on beta-calvin, metoprolol 50 mg daily. Has heart rate 30 and a 2-second pause. Cardiology consult was called. Since the patient is off beta-calvin, no further episode of arrhythmia noted. The patient is in normal sinus. RECOMMENDATIONS: We will get the Holter to rule out any tachybrady syndrome, which is unlikely we can start 12.5 mg b.i.d. Continue aggressive electrolytes supplement. Monitor blood pressure. Further recommendations depending on the hospital course. We will get echo to rule out any structural heart disease. We will give another 40 potassium. Continue gentle diuretics. We will get echo to assess LV function. We will also get lipid profile, hemoglobin A1c as well and repeat the blood workup in the morning. We will put 24-hour Holter. Thank you, Dr. Juárez, for providing us the opportunity in taking care of the patient, Tresa Swann. Abel Jones MD
--- NOTE | 2017-11-08 21:06 | CARD ---
APPROVED REPORT Date of service: 11/08/2017 EXAM: Two-dimensional and M-mode echocardiogram with Doppler and color Doppler. INDICATION Congestive Heart Failure 2D DIMENSIONS Left Atrium (2D)3.8 (1.6-4.0cm)IVSd1.0 (0.7-1.1cm) LVDd3.9 (3.9-5.9cm)PWd1.1 (0.7-1.1cm) LVDs2.8 (2.5-4.0cm)FS (%) 28.8 % LVEF (%)56.1 (>50%) M-Mode DIMENSIONS Aortic Root3.20 (2.2-3.7cm)Aortic Cusp Exc.1.70 (1.5-2.0cm) Aortic Valve AoV Peak Jognhjeb289.0cm/Gretchen Peak GR.13mmHg Mitral Valve MV E Fgznyttx04.7cm/sMV A Fldoncrx335.0cm/sE/A ratio0.6 TDI Lateral E' Peak V13.00cm/sMedial E' Peak V11.70cm/sE/Lateral E'5.7 E/Medial E'6.4 Pulmonary Valve PV Peak Wogenyhv084.0cm/sPV Peak Grad.4mmHg Tricuspid Valve TR Peak Nvilijcf437aq/sRAP [id number] Peak Gr.88mmHg [id number] LEFT VENTRICLE The left ventricle is normal size. There is normal left ventricular wall thickness. The left ventricular function is normal. The left ventricular ejection fraction is within the normal range. There is normal LV segmental wall motion. Transmitral Doppler flow pattern is Grade I-abnormal relaxation pattern. No left ventricle thrombus noted on this study. There is no ventricular septal defect visualized. RIGHT VENTRICLE The right ventricle is mildly dilated. There is normal right ventricular wall thickness. The right ventricular systolic function is normal. ATRIA The left atrium size is normal. The right atrium size is normal. AORTIC VALVE The aortic valve is not well visualized. No aortic regurgitation is present. There is no aortic valvular stenosis. MITRAL VALVE The mitral valve is mildly thickened. There is no mitral valve regurgitation noted. There is no mitral valve stenosis. TRICUSPID VALVE The tricuspid valve is normal in structure. There is severe tricuspid regurgitation. There is severe pulmonary hypertension. PULMONIC VALVE The pulmonary valve is normal in structure. There is no pulmonic valvular regurgitation. GREAT VESSELS The aortic root is normal in size. PERICARDIAL EFFUSION There is no pericardial effusion. <Conclusion> There is normal left ventricular wall thickness. The left ventricular function is normal. The left ventricular ejection fraction is within the normal range. There is normal LV segmental wall motion. Transmitral Doppler flow pattern is Grade I-abnormal relaxation pattern. There is severe tricuspid regurgitation. There is severe pulmonary hypertension.
[2017-11-09] MEDS: Linezolid 600 mg in D5W 300 ml 600 MG/300 ML BAG IVPB SCH ×3 (00:24→22:12)
[2017-11-09] MEDS: Levalbuterol 0.63 MG/3 ML Inhal Soln UD IH SCH ×4 (02:20→19:36)
[2017-11-09] MEDS: Aztreonam 1 Gm in NS 100mL 100 ML IVPB SCH ×3 (05:18→21:00)
[2017-11-09] MEDS: Levothyroxine 100 MCG TAB PO SCH (05:18)
[2017-11-09] MEDS: Pantoprazole 40 mg EC Tab PO SCH (05:19)
[2017-11-09 06:30] LABS: BASO # 0.02 K/mm3 (0.0-2.0); BASO % 0.2 % (0.0-3.0); EOS # 0.2 (0.0-0.7); GRAN # 7.16 (1.4-6.5); GRAN % 73.5 % (50.0-68.0); HEMOGLOBIN 10.7 g/dL (12.0-16.0); LYMPH % 10.7 % (22.0-35.0); MEAN CELL VOLUME 86.3 fl (80.0-105.0); MEAN CORPUSCULAR HEMOGLOBIN 28.8 pg (25.0-35.0); MEAN CORPUSCULAR HGB CONC 33.4 g/dl (31.0-37.0); MEAN PLATELET VOLUME 9.6 fl (7.0-11.0); MONO # 1.3 (0.1-0.6); MONO % 13.6 % (1.0-6.0); RBC 3.71 10^6/uL (3.5-6.1); RED CELL DISTRIBUTION WIDTH 12.4 % (11.5-14.5); WHITE BLOOD COUNT 9.7 10^3/ul (4.5-11.0)
[2017-11-09 06:56] LABS: LDL CHOLESTEROL 56 mg/dL (0-129)
[2017-11-09 07:21] LABS: ALB/GLOB RATIO 1.1 (1.1-1.8); ALBUMIN 2.9 g/dL (3.0-4.8); ALT/SGPT 38 U/L (7-56); AST/SGOT 32 U/L (14-36); BLOOD UREA NITROGEN 9 mg/dL (7-21); CALCIUM 8.5 mg/dL (8.4-10.5); GFR NON-AFRICAN AMERICAN > 60; HDL CHOLESTEROL 31 mg/dL (29-60)
[2017-11-09] MEDS: Insulin Reg-MEDIUM-Coverage SC SCH ×4 (08:40→21:13)
[2017-11-09] MEDS: guaiFENesin-DM 600-30 mg ER Tab PO SCH ×2 (09:46→17:34)
[2017-11-09] MEDS: metOLazone 5 MG TAB PO SCH (09:46)
[2017-11-09] MEDS: Potassium Chloride 20 mEq ER Tab PO SCH ×2 (09:47→17:34)
[2017-11-09] MEDS ORDERED: diltiaZEM IVPB 100mg in NS 100 ML IV PRN ×2 (11:14→11:52)
[2017-11-09] MEDS: Azithromycin 500MG/NS 250ml 500 MG/250 ML BAG IVPB SCH (11:59)
[2017-11-09] MEDS ORDERED: Metoprolol 1 mg/ml Inj IVP ONE (12:17)
--- NOTE | 2017-11-09 13:27 | PN ---
DATE: 11/09/2017 DICTATING PHYSICIAN: Dr. Abel Jones REASON FOR THE CONSULTATION AND FOLLOWUP: Sinus pause, bradycardia, on beta-calvin, admitted with possible pneumonia in ICU. Now patient is in telemetry. Tachycardia. SUBJECTIVE: Patient denies any chest pain, shortness of breath, any palpitation, getting DuoNeb nebulizer treatment, heart rate 104. PHYSICAL EXAMINATION: VITAL SIGNS: Afebrile, heart rate 101, blood pressure 136/78. HEENT: PERRLA. Extraocular muscles intact. NECK: Supple. No carotid bruit or thyromegaly. CHEST: Clear to auscultation. HEART: S1 and S2, regular. ABDOMEN: Soft. EXTREMITIES: Clubbing and cyanosis negative. LABORATORY DATA: Blood workup as follows; WBC 9.7, hemoglobin 10.7, hematocrit 32, platelet count 197. Chemistry shows sodium 134, potassium 3.6, chloride 96, carbon dioxide 30, anion gap of 12. BUN 9, creatinine 0.8. Total protein 5.6, albumin 2.9, albumin globulin ratio 1.1. IMPRESSION: An 82-year-old female with past medical history significant for hypertension, hypothyroidism, diabetes mellitus, admitted with bilateral pneumonia. At home patient was on beta-calvin 50 mg daily. In the telemetry, patient had a pause probably secondary to beta-calvin. Now patient is off beta-calvin tachycardic. RECOMMENDATIONS: Continue Holter monitor, Holter is in progress. Since the patient is tachycardic, we will start 25 mg of Lopressor p.o. b.i.d. Patient had echocardiography done yesterday that shows preserved LV function, pulmonary hypertension, RV systolic pressure of 98, severe tricuspid regurgitation and severe pulmonary hypertension. We will continue gentle diuretics, treat aggressively for pneumonia and monitor heart rate. So far the patient has no further episode of bradycardia noted. We will follow up the Holter. Abel Jones MD
--- NOTE | 2017-11-09 14:51 | CARD ---
APPROVED REPORT Date of service: 11/09/2017 EKG Measurement Heart [id number] <Conclusion> Sinus tachycardia with frequent premature atrial complexes and fusion complexes Moderate voltage criteria for LVH, may be normal variant Borderline ECG
--- NOTE | 2017-11-09 22:38 | PN ---
DATE: 11/09/2017 SUBJECTIVE: Patient is in bed, was seen earlier this morning in room 260, bed 2. No fevers and no chills. PHYSICAL EXAMINATION: VITAL SIGNS: Temperature is 98, blood pressure is 116/70, respiratory rate of 18, heart rate of 100. HEENT: Unremarkable. NECK: Supple. LUNGS: Have decreased breath sounds. HEART: Normal S1, S2. ABDOMEN: Soft, nontender. LABORATORY EXAMINATION: Reveals white count of 9.7, hemoglobin of 10, platelets of 197. Coagulation is noted. BUN of 9, creatinine of 0.8. Urinalysis is noted. Serology shows urine for Legionella antigen is negative. Influenza is negative. Microbiology reveals the sputum cultures negative, another sputum culture is negative. Blood cultures, no growth. Nares MRSA is not detected. There is E. Coli in the urine. PATIENT IS ALLERGIC TO PENICILLIN. E. Coli in the urine is resistant to ampicillin; sensitive to ceftriaxone, Bactrim; resistant to Cipro. ASSESSMENT AND PLAN: This is an 82-year-old female with sepsis due to acute bronchitis, bilateral pneumonia, fibrotic changes at the bases on CAT scan, mediastinal lymph nodes, hypertension, dyslipidemia, diabetes, obesity, body mass index of 33 with Escherichia coli in the urine with only 2 to 5 wbc's in urinalysis. We did an echo, which reveals left ventricular ejection fraction of 56%. The patient had a CAT scan of the chest, no focal consolidation and a procalcitonin, which was 0.56 and 0.72. On aztreonam day #4 and Zyvox day #4. We will repeat the procalcitonin. Follow closely with you. Tyrone Salazar MD
[2017-11-10] MEDS: Levalbuterol 0.63 MG/3 ML Inhal Soln UD IH SCH ×4 (01:51→19:46)
--- NOTE | 2017-11-10 02:19 | PN ---
DATE: 11/09/2017 SUBJECTIVE: Patient was seen this Wednesday in room 360, bed 1 with her at the bedside. Later in the evening, I spoke to her son to bring him up-to-date on her condition. Patient is resting comfortably in bed. She is awake, alert, clear, and in good spirits. PHYSICAL EXAMINATION: LUNGS: Show good aeration, right and left. HEART: Borderline tachycardiac in the high 90s to low 100s. ABDOMEN: Soft, moderately overweight. EXTREMITIES: Show no edema. ASSESSMENT: Patient had a difficult day today with rapid heart rate. 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 She was on a Cardizem drip and additional doses of IV beta-blockers were given. Now rate seems better controlled. I explained to the family that the three main issues at hand are; 1. Acute bilateral pneumonia with the fever of 102 and a heart rate of 140 in the office when I saw her last on Wednesday afternoon. 2. Chronic fibrotic changes in the lungs in a patient who is a nonsmoker, but was exposed to secondhand smoke for most of her childhood. There is no occupational or travel exposures in the history. 3. Recurrent tachycardia, currently being addressed by Cardiology with medications. PLAN: We will ask for Pulmonary evaluation of the fibrotic changes. A full pulmonary function test needed during this hospital stay or as an outpatient would be reasonable to further assess her pulmonary status given the findings on CT scan. We will ask Dr. Haines and Dr. Fulton to consult. Brian Juárez MD
[2017-11-10] MEDS: Aztreonam 1 Gm in NS 100mL 100 ML IVPB SCH ×3 (05:11→21:23)
[2017-11-10] MEDS: Pantoprazole 40 mg EC Tab PO SCH (05:12)
[2017-11-10] MEDS: Levothyroxine 100 MCG TAB PO SCH (05:12)
[2017-11-10 07:16] LABS: BASO # 0.05 K/mm3 (0.0-2.0); BASO % 0.4 % (0.0-3.0); EOS # 0.3 (0.0-0.7); GRAN # 10.1 (1.4-6.5); GRAN % 73.7 % (50.0-68.0); HEMOGLOBIN 12.2 g/dL (12.0-16.0); LYMPH # 1.5 (1.2-3.4); LYMPH % 11.1 % (22.0-35.0); MEAN CELL VOLUME 86.2 fl (80.0-105.0); MEAN CORPUSCULAR HGB CONC 33.6 g/dl (31.0-37.0); MEAN PLATELET VOLUME 9.7 fl (7.0-11.0); MONO # 1.8 (0.1-0.6); MONO % 12.8 % (1.0-6.0); RBC 4.21 10^6/uL (3.5-6.1); RED CELL DISTRIBUTION WIDTH 12.5 % (11.5-14.5); WHITE BLOOD COUNT 13.7 10^3/ul (4.5-11.0)
[2017-11-10 07:34] LABS: ALB/GLOB RATIO 1.2 (1.1-1.8); ALBUMIN 3.6 g/dL (3.0-4.8); ALT/SGPT 33 U/L (7-56); AST/SGOT 35 U/L (14-36); BLOOD UREA NITROGEN 12 mg/dL (7-21); CALCIUM 8.6 mg/dL (8.4-10.5); GFR NON-AFRICAN AMERICAN > 60
[2017-11-10] MEDS: Insulin Reg-MEDIUM-Coverage SC SCH ×4 (08:11→21:19)
[2017-11-10] MEDS: Budesonide 0.5 mg/2 ml Inhal Susp UD IH SCH ×2 (08:13→19:46)
--- NOTE | 2017-11-10 09:13 | CON ---
DATE: 11/10/2017 PULMONARY CONSULTATION REASON FOR PULMONARY CONSULTATION: Pulmonary hypertension. REFERRING PHYSICIAN: Brian Juárez MD. HISTORY OF PRESENT ILLNESS: The patient is an 82-year-old female, with past medical history significant for hypertension, hyperlipidemia, diabetes mellitus, obesity, who presented to [facility] - originally on 11/05/2017 - with a 4-day history of increasing shortness of breath at rest, dyspnea on exertion, and cough. Apparently, the patient did get a flu shot - preceding these above symptoms. There is no history of sputum production. There is no history of chest pain, coughing up of blood, or chest pain - made worse with deep respirations. The patient did present with fevers. No history of chills or infectious exposure. No history of night sweats, weight loss, or appetite change prior to the above events. No history of leg or calf pains. No history of syncope or diaphoresis. No history of recent travel or trauma. REVIEW OF SYSTEMS: The patient also complained of runny nose and nasal congestion. No history of nausea, vomiting, or diarrhea. No acute urinary symptoms. No new neurological complaints. Rest of the review of systems is negative. ALLERGIES: PENICILLIN. SOCIAL HISTORY: Negative for tobacco, however, her was a heavy smoker. No alcohol. FAMILY HISTORY: No inheritable diseases. HOME MEDICATIONS: Include Norvasc, Lopressor, Cozaar, Levoxyl, Levaquin, glipizide, and Lipitor. PHYSICAL EXAMINATION: GENERAL: The patient appears comfortable this morning. She is not short of breath at rest. VITAL SIGNS: Temperature is 99.3, pulse 86, respiratory rate 18-20, blood pressure 123/74. Oxygen saturation on nasal cannula is 92%-97%. HEENT: Normocephalic, atraumatic. No JVD. CARDIOVASCULAR: Systolic ejection murmur at the lower left sternal border. No S3 gallop. LUNGS: Crackles at both bases. Minimal bilateral rhonchi. No wheezing. EXTREMITIES: Mild edema. No cyanosis, no clubbing. Calves are nontender to palpation. GASTROINTESTINAL: Abdomen is soft, nontender, and nondistended. Bowel sounds are positive. SKIN: No acute rash. NEUROLOGIC: Limited at the present time. PERTINENT LABORATORY DATA: CAT scan of the chest was done on 11/05/2017 and reviewed. There is extensive pulmonary fibrosis with honeycombing noted in both lower lobes.. There is no obvious focal consolidation or pleural effusion. There is mild nonspecific mediastinal lymphadenopathy noted. Echocardiogram was also done on 11/08/2017. The right ventricular systolic pressure is estimated at 98 mmHg. CBC: White count 9.7K, hemoglobin 10.7, hematocrit 32, platelets of 197,000. IMPRESSION: 1. Acute bronchitis. 2. Sepsis syndrome, possible pneumonia. 3. Pulmonary fibrosis. 4. Abnormal CAT scan of the chest. 5. Pulmonary hypertension. PLAN: The patient presented to [facility] - originally on 11/05/2017 - with a 4-day history of worsening pulmonary symptoms. In addition, the patient did present with a fever. As above, these above symptoms were preceded by a flu shot. In the Emergency Room, the patient was also noted to be tachycardic. She was thus admitted for additional evaluation. I did review the CAT scan of the chest. Findings are noted above. There is extensive pulmonary fibrosis with honeycombing in the lower lobes. There are no distinct infiltrates, however, it is certainly very difficult to absolutely exclude an underlying pneumonia. I would continue with the current antibiotic coverage for now. Input by Infectious Disease is noted. The temperatures have resolved. The leukocytosis has also resolved. In addition to the above, there is mild nonspecific mediastinal adenopathy noted. I did discuss the CAT scan findings with the patient this morning. Probably, the best way to follow the CAT scan abnormalities - would be to proceed with a PET scan as an outpatient-- to rule out underlying malignancy. I have also reviewed the echocardiogram. Severe pulmonary hypertension is noted. I will start the patient on low-dose sildenafil this morning. The patient will most likely need a right heart catheterization - in order for us to get the proper medication to treat the pulmonary hypertension. I will discuss this issue with Cardiology this morning. On physical exam, there is mild bronchospasm noted. In addition, there is a [id number]-irttrceo increase in the alveolar-arterial gradient. I will continue with the current nebulizer treatments and add inhaled steroids this morning. Inputs by Infectious Disease, Internal Medicine, and Cardiology are noted. Clinical status of the patient is significantly improved - compared to the initial presentation. However, the future status/prognosis for this patient does remain guarded - given the above. I will discuss the above with Dr. Juárez later this morning. Thank you very much for this pulmonary consultation. Kobi Haines MD ANNIE
[2017-11-10] MEDS: Linezolid 600 mg in D5W 300 ml 600 MG/300 ML BAG IVPB SCH (09:43)
[2017-11-10] MEDS: Azithromycin 500MG/NS 250ml 500 MG/250 ML BAG IVPB SCH (09:44)
[2017-11-10] MEDS: metOLazone 5 MG TAB PO SCH (09:44)
[2017-11-10] MEDS: Potassium Chloride 20 mEq ER Tab PO SCH ×2 (09:44→17:40)
[2017-11-10] MEDS: guaiFENesin-DM 600-30 mg ER Tab PO SCH ×2 (09:52→17:41)
[2017-11-10] MEDS: Sildenafil 20 MG TAB PO SCH ×2 (09:53→17:40)
[2017-11-10] MEDS ORDERED: Potassium Chloride 20 mEq ER Tab PO ONE (10:14)
--- NOTE | 2017-11-10 13:15 | PN ---
DATE: 11/10/2017 DAILY PROGRESS NOTE SUBJECTIVE: The patient is an 82-year-old female with a past medical history positive for [id number] diabetes mellitus and hypothyroidism, who was admitted to the intensive care unit on 11/05/2017, with sepsis and lobar pneumonia. The patient improved during her hospital stay and was transferred to the telemetry floor where she is seen today. She is being treated with Zyvox, azithromycin, and Azactam for her lobar pneumonia/bronchitis. She is being followed by Dr. Salazar, the infectious disease specialist. She is also being followed by Dr. Haines and Dr. Fulton, the pulmonologists as well as Dr. Jones and Dr. Pedro, the cardiologists. When seen today, the patient's is at the bedside. He was saying that the patient looks so much better yesterday. This morning, she is distraught, tense, nervous, upset. Apparently, she she would be having a PET scan done post discharge and the patient feels that she has cancer with no one is telling her. Her workup during the hospital stay included an echocardiogram which showed a 56% ejection fraction with pulmonary hypertension and tricuspid regurgitation. Recent EKG shows sinus tachycardia with premature atrial contractions. PHYSICAL EXAMINATION: VITAL SIGNS: Stable. LABORATORY DATA: From yesterday including the serum chemistries and CBC were unremarkable and acceptable. She has completed a 24-hour Holter monitor. She was started on sildenafil for her pulmonary hypertension. We are continuing with her antibiotics for the lobar pneumonia and we are continuing to follow the patient closely. Davidson Juárez MD
--- NOTE | 2017-11-10 13:59 | PN ---
DATE: 11/10/2017 REASON FOR THE CONSULTATION AND FOLLOWUP: Rule out tachybrady syndrome, on beta calvin because of bradycardic heart rate 30. Now, the patient is tachycardic, normal sinus with sinus tachycardia. Admitted with bilateral pneumonia, possible COPD. PHYSICAL EXAMINATION: VITAL SIGNS: Temperature afebrile, heart rate 108, blood pressure 140/68. HEENT: PERRLA. Extraocular muscles intact. NECK: Supple. No carotid bruits or thyromegaly. CHEST: Clear to auscultation. HEART: S1 and S2 regular. ABDOMEN: Soft. EXTREMITIES: Clubbing and cyanosis negative. LABORATORY DATA: Blood workup as follows; WBC 13, hemoglobin 12.2, hematocrit 36.3, platelet count . Chemistry shows sodium 130, potassium 3.8, chloride 88, carbon dioxide 33, anion gap of 14, BUN 12, creatinine 0.9. IMPRESSION: An 82-year-old female with past medical history significant for hypertension, hypothyroidism, diabetes, admitted with bilateral pneumonia. At home, the patient was on beta-calvin 50 twice a day. While transferred from ICU to telemetry, had bradycardic episode, heart rate of 30, the patient was sleeping, off beta-calvin, but now the patient becomes tachycardic. Holter monitor is in progress. Yesterday, the patient had echo done that shows preserved left ventricular function, ejection fraction preserved, but elevated right ventricular systolic pressure of 98. Severe tricuspid regurgitation. Severe pulmonary hypertension. RECOMMENDATION: We will change dual nebulizer treatment to Xopenex to prevent tachycardia and I will start verapamil 40 mg 3 times a day. Discontinue amlodipine. We will start sildenafil that is Revatio for pulmonary hypertension. We will follow with you. Hold for heart rate less than 55. We will supplement potassium also. Continue IV Lasix for now 40. We will change to 40 p.o. in a day or two. Continue IV Lasix and Zaroxolyn as well. Thank you, Dr. Juárez, for providing us the opportunity in taking care of the patient, Tresa Swann. We will follow Tresa Swann. Abel Jones MD [facility] # [id number]
--- NOTE | 2017-11-10 16:03 | PN ---
DATE: 11/10/2017 SUBJECTIVE: The patient is in bed in no acute distress. She was seen early this morning in 260, bed 2. PHYSICAL EXAMINATION: VITAL SIGNS: Temperature is 98, blood pressure is 120/70, respiratory rate of 18, heart rate of 97. HEENT: Unremarkable. NECK: Supple. LUNGS: Have decreased breath sounds. HEART: Normal S1, S2. ABDOMINAL: Soft. LABORATORY EXAMINATION: Reveals the patient's white count of 13,700, hemoglobin of 12. Coagulation is noted. Chemistries reveals a BUN of 12, creatinine of 0.9. Urinalysis is noted. Serology is reviewed. Microbiology reveals E. coli in the urine. The blood cultures are no growth. Sputum culture is normal alfred. Nares are negative. Review of orders reveals the patient to be on linezolid, azithromycin and aztreonam. E. coli in the urine is reported to be pansensitive. ASSESSMENT AND PLAN: An 82-year-old female seen earlier this morning, admitted with sepsis secondary to bronchitis and bilateral pleural pneumonia, fibrotic changes on basis of the CAT scan with mediastinal lymph node, hypertension, dyslipidemia, diabetes, obesity with BMI of 33. Escherichia coli in the urine with unremarkable urinalysis. The echo results are reviewed. Day #5 of Zithromax and Zyvox. Negative blood cultures. The patient is also on aztreonam, but a negative methicillin-resistant Staphylococcus aureus screen. Repeat procalcitonin is pending. Dr. Haines's note is reviewed, consultation. He feels the patient has acute bronchitis, sepsis syndrome, possible pneumonia, pulmonary fibrosis, pulmonary hypertension. He recommended the PET scan as outpatient and followup. The CT findings to rule out underlying malignancy. The patient's fever has responded. The patient's white count had responded is up to 13,700. We will discontinue the IV Zyvox and change the Zithromax to p.o. Follow the WBC count. Continue the aztreonam for now. We will use p.o. Zithromax. Today is #5 of aztreonam. We will follow the procalcitonin. Review of the EKG reveals the patient's QTc is 471. We will follow closely with you. Tyrone Salazar MD [facility] # [id number]
[2017-11-11] MEDS: Levalbuterol 0.63 MG/3 ML Inhal Soln UD IH SCH ×4 (01:36→19:53)
[2017-11-11] MEDS: Pantoprazole 40 mg EC Tab PO SCH (05:40)
[2017-11-11] MEDS: Levothyroxine 100 MCG TAB PO SCH (05:40)
[2017-11-11] MEDS: Aztreonam 1 Gm in NS 100mL 100 ML IVPB SCH ×3 (05:40→21:45)
[2017-11-11 06:36] LABS: BASO # 0.03 K/mm3 (0.0-2.0); BASO % 0.2 % (0.0-3.0); EOS # 0.4 (0.0-0.7); EOS % 2.9 % (1.5-5.0); GRAN # 10.2 (1.4-6.5); GRAN % 72.8 % (50.0-68.0); HEMOGLOBIN 11.9 g/dL (12.0-16.0); LYMPH # 1.9 (1.2-3.4); LYMPH % 13.6 % (22.0-35.0); MEAN CELL VOLUME 86.9 fl (80.0-105.0); MEAN CORPUSCULAR HGB CONC 33.3 g/dl (31.0-37.0); MEAN PLATELET VOLUME 9.3 fl (7.0-11.0); MONO # 1.5 (0.1-0.6); MONO % 10.5 % (1.0-6.0); RBC 4.11 10^6/uL (3.5-6.1); RED CELL DISTRIBUTION WIDTH 12.6 % (11.5-14.5)
[2017-11-11 06:48] LABS: ALBUMIN 3.4 g/dL (3.0-4.8); ALT/SGPT 39 U/L (7-56); AST/SGOT 39 U/L (14-36); BLOOD UREA NITROGEN 20 mg/dL (7-21); CALCIUM 8.7 mg/dL (8.4-10.5); GFR NON-AFRICAN AMERICAN > 60
[2017-11-11] MEDS: Budesonide 0.5 mg/2 ml Inhal Susp UD IH SCH ×2 (07:10→19:53)
[2017-11-11] MEDS: Insulin Reg-MEDIUM-Coverage SC SCH ×3 (08:00→17:23)
--- NOTE | 2017-11-11 08:09 | PN ---
DATE: 11/11/2017 PULMONARY NOTE SUBJECTIVE: The patient appears comfortable this morning. She is not short of breath at rest. OBJECTIVE: VITAL SIGNS: Temperature is 97.8, pulse is 95, respirations 18/20, blood pressure 128/78. Oxygen saturation on nasal cannula is 91-93%. HEENT: Normocephalic, atraumatic. No JVD. CARDIOVASCULAR: Systolic ejection murmur at the lower left sternal border. No S3 gallop. LUNGS: Crackles at both bases. Less rhonchi. No wheezing. EXTREMITIES: Mild edema. No cyanosis, no clubbing. Calves are nontender to palpation. GI: Abdomen is soft, nontender and nondistended. Bowel sounds are positive. SKIN: No acute rash. NEUROLOGIC: Exam limited at the present time. IMPRESSION: 1. Acute bronchitis. 2. Sepsis syndrome, possible pneumonia. 3. Pulmonary fibrosis. 4. Abnormal CAT scan of the chest. 5. Pulmonary hypertension. PLAN: The patient appears comfortable this morning. She is not short of breath at rest. She is out of bed, sitting in the chair. She does state to feeling better overall. On physical exam, her bronchospasm is less.. I will continue with the current nebulizer treatments and inhaled steroids for now. The patient also remains on Revatio - for her pulmonary hypertension. Again, I will discuss the patient's status with Cardiology this morning - in reference to possibly doing a right heart catheterization in the near future. Again, right heart catheterization is required by insurance companies for us to get the adequate medications for the patient. Lastly, I did discuss the CAT scan findings with the patient again at length. Again, I would follow the CAT scan abnormalities with PET scanning as an outpatient. Inputs by Internal Medicine, Cardiology and Infectious Disease are noted. Clinical status of the patient is certainly improved - compared to her initial status. However, again, the future status/prognosis for this elderly patient does remain very guarded. I discussed the case with Dr. Juárez at length yesterday. I will discuss the case with him again this morning. Kobi Haines MD [facility] # [id number] ANNIE
--- NOTE | 2017-11-11 09:10 | CP.PCM.PN ---
Subjective - Date & Time of Evaluation Date of Evaluation: 11/11/17 Time of Evaluation: 06:25 - Subjective Subjective: Awake, sitting on chair,no distress, coughing Reason for consultation and follow up: Cardiac evaluation of tachycardia, rule out tachy/bradycardia syndrome. on betablocker, admitted for bilateral pneumonia, severe pulmonary hypertension Seen and examined by me and Dr. Jones Objective - Vital Signs/Intake and Output Vital Signs (last 24 hours): Temp Pulse Resp BP Pulse Ox 97.8 F 95 H 20 128/78 91 L 11/11/17 06:00 11/11/17 06:00 11/11/17 06:00 11/11/17 06:00 11/11/17 06:00 Intake and Output: 11/11/17 11/11/17 06:59 18:59 Intake Total 1867 Balance 1867 - Medications Medications: Current Medications Acetaminophen (Tylenol 325mg Tab) 650 mg PO Q6H PRN PRN Reason: Pain, moderate (4-7) Last Admin: 11/06/17 21:12 Dose: 650 mg Atorvastatin Calcium (Lipitor) 5 mg PO DAILY [facility] Last Admin: 11/10/17 09:52 Dose: 5 mg Azithromycin (Zithromax) 250 mg PO DAILY [facility]; Protocol Stop: 11/16/17 10:01 Budesonide (Pulmicort Respules) 0.5 mg IH [id number] [facility] Last Admin: 11/11/17 07:10 Dose: 0.5 mg Furosemide (Lasix) 40 mg IVP DAILY [facility] Last Admin: 11/10/17 09:45 Dose: 40 mg Guaifenesin/Dextromethorphan (Mucinex-Dm 600-30 Mg) 1 tab PO BID [facility] Last Admin: 11/10/17 17:41 Dose: 1 tab Heparin Sodium (Porcine) (Heparin) 5,000 units SC Q8 [facility]; Protocol Last Admin: 11/11/17 05:46 Dose: 5,000 units Aztreonam (Azactam 1 Gm) 100 mls @ 100 mls/hr IVPB Q8 [facility]; Protocol Stop: 11/13/17 08:46 Last Admin: 11/11/17 05:40 Dose: 100 mls/hr Insulin Human Regular (Humulin R Med) 0 units SC ACHS [facility]; Protocol Last Admin: 11/11/17 08:00 Dose: 1 unit Levalbuterol HCl (Xopenex) 0.63 mg IH [id number] [facility] Last Admin: 11/11/17 07:10 Dose: 0.63 mg Levalbuterol HCl (Xopenex) 0.63 mg IH [id number] PRN PRN Reason: Shortness of Breath Last Admin: 11/07/17 16:23 Dose: 0.63 mg Levothyroxine Sodium (Synthroid) 100 mcg PO 0600 [facility] Last Admin: 11/11/17 05:40 Dose: 100 mcg Metolazone (Zaroxolyn) 5 mg PO DAILY [facility] Last Admin: 11/10/17 09:44 Dose: 5 mg Metoprolol Tartrate (Lopressor) 25 mg PO BID [facility] Last Admin: 11/10/17 17:40 Dose: 25 mg Pantoprazole Sodium (Protonix Ec Tab) 40 mg PO 0600 [facility] Last Admin: 11/11/17 05:40 Dose: 40 mg Potassium Chloride (K-Dur 20 Meq Er Tab) 20 meq PO BID [facility] Last Admin: 11/10/17 17:40 Dose: 20 meq Sildenafil Citrate (Revatio) 20 mg PO BID [facility] Last Admin: 11/10/17 17:40 Dose: 20 mg Verapamil HCl (Calan Tab) 40 mg PO TID [facility] Last Admin: 11/10/17 19:09 Dose: 40 mg - Labs Labs: 11/11/17 05:30 11/11/17 05:30 PT 15.3 SECONDS (9.4-12.5) H 11/05/17 14:30 INR 1.33 11/05/17 14:30 APTT 25.6 Seconds (25.1-36.5) 11/05/17 14:30 - Constitutional Appears: Non-toxic, No Acute Distress - Head Exam Head Exam: NORMAL INSPECTION, NORMOCEPHALIC - Eye Exam Eye Exam: Normal appearance - ENT Exam ENT Exam: Mucous Membranes Dry - Respiratory Exam Respiratory Exam: Decreased Breath Sounds, Clear to Ausculation Bilateral, Rhonchi, Wheezes, NORMAL BREATHING PATTERN - Cardiovascular Exam Cardiovascular Exam: REGULAR RHYTHM, +S1, +S2 Additional comments: Telemetry normal sinus rhythm 60-70's - GI/Abdominal Exam GI & Abdominal Exam: Soft, Normal Bowel Sounds - Extremities Exam Extremities Exam: Full ROM, Normal Capillary Refill - Neurological Exam Neurological Exam: Alert, Awake, Oriented x3 - Psychiatric Exam Psychiatric exam: Normal Affect, Normal Mood - Skin Skin Exam: Dry, Intact, Normal Color, Warm Assessment and Plan - Assessment and Plan (Free Text) Assessment: A 82 year old who came in to the ER due to shortness of breath and tachycardia. Consult was called due to tachycardia and episode of bradycardia.History of hypertension,pneumonia,diabetes, hypothyroidism, back surgery and leg surgery. Admitted for pneumonia. Rule out tachy/alina syndrome. Discontinued betablocker. Holter monitor,Echo severe pulmonary hypertension, started on Revatio. Plan: Mild shortness of breath, mild wheezing Nebulizer treatment administered with relief Denies chest pain Heart rate controlled NSR-60-70's Blood pressure controlled On Lipitor 5 mg daily, Lasix 40 mg daily,Synthroid 100 mcg daily, Zaroxylyn 5 mg daily, Lopressor 25 mg BID,Kdur 20 meq BID, Revatio 20 mg BID Verapamil 40 mg TID Pulmonary hypertension-on Revatio 20 mg BID Continue antibiotics as per ID Pulmonary on consult Replenish Low potassium- additional potassium ordered Continue current treatment Continue current medications Chart reviewed Will follow up Plan and treatment discussed with Dr. Jones
[2017-11-11] MEDS ORDERED: Potassium Chloride 20 mEq ER Tab PO STA (09:32)
[2017-11-11] MEDS: Sildenafil 20 MG TAB PO SCH ×2 (09:47→17:24)
[2017-11-11] MEDS: guaiFENesin-DM 600-30 mg ER Tab PO SCH ×2 (09:47→17:23)
[2017-11-11] MEDS: metOLazone 5 MG TAB PO SCH (09:48)
[2017-11-11] MEDS: Potassium Chloride 20 mEq ER Tab PO SCH ×2 (10:18→17:24)
[2017-11-12] MEDS: Insulin Reg-MEDIUM-Coverage SC SCH ×5 (00:04→21:45)
[2017-11-12] MEDS: Levalbuterol 0.63 MG/3 ML Inhal Soln UD IH SCH ×4 (02:07→19:25)
[2017-11-12] MEDS: Aztreonam 1 Gm in NS 100mL 100 ML IVPB SCH ×3 (05:31→21:44)
[2017-11-12] MEDS: Pantoprazole 40 mg EC Tab PO SCH (05:32)
[2017-11-12] MEDS: Levothyroxine 100 MCG TAB PO SCH (05:33)
[2017-11-12 06:34] LABS: BASO # 0.06 K/mm3 (0.0-2.0); BASO % 0.4 % (0.0-3.0); EOS # 0.7 (0.0-0.7); EOS % 4.5 % (1.5-5.0); GRAN # 10.24 (1.4-6.5); GRAN % 70.4 % (50.0-68.0); HEMOGLOBIN 12.1 g/dL (12.0-16.0); LYMPH # 2.5 (1.2-3.4); LYMPH % 17.1 % (22.0-35.0); MEAN CELL VOLUME 87.6 fl (80.0-105.0); MEAN CORPUSCULAR HEMOGLOBIN 28.7 pg (25.0-35.0); MEAN CORPUSCULAR HGB CONC 32.8 g/dl (31.0-37.0); MEAN PLATELET VOLUME 9.3 fl (7.0-11.0); MONO # 1.1 (0.1-0.6); MONO % 7.6 % (1.0-6.0); RBC 4.21 10^6/uL (3.5-6.1); RED CELL DISTRIBUTION WIDTH 12.7 % (11.5-14.5); WHITE BLOOD COUNT 14.6 10^3/ul (4.5-11.0)
[2017-11-12 07:41] LABS: ALBUMIN 3.4 g/dL (3.0-4.8); ALT/SGPT 34 U/L (7-56); AST/SGOT 46 U/L (14-36); BLOOD UREA NITROGEN 25 mg/dL (7-21); CALCIUM 8.7 mg/dL (8.4-10.5); GFR NON-AFRICAN AMERICAN 53
--- NOTE | 2017-11-12 07:48 | PN ---
DATE: 11/12/2017 PULMONARY NOTE SUBJECTIVE: The patient appears very comfortable this morning. She is not short of breath at rest. PHYSICAL EXAMINATION: VITAL SIGNS: Temperature is 97.9, pulse 80, respirations 18-20, blood pressure 120/80. Oxygen saturation on nasal cannula is 97%. HEENT: Normocephalic, atraumatic. No JVD. CARDIOVASCULAR: Systolic ejection murmur at the lower left sternal border. No S3 gallop. LUNGS: Crackles at both bases. Much less/minimal rhonchi. No wheezing. EXTREMITIES: Mild edema. No cyanosis, no clubbing. Calves are nontender to palpation. GASTROINTESTINAL: Abdomen is soft, nontender, and nondistended. Bowel sounds are positive. SKIN: No acute rash. NEUROLOGIC: Limited at the present time. IMPRESSION: 1. Acute bronchitis. 2. Sepsis syndrome, possible pneumonia. 3. Pulmonary fibrosis. 4. Abnormal CAT scan of the chest. 5. Pulmonary hypertension. PLAN: The patient appears comfortable this morning. She is not short of breath at rest. She does state to feeling much better overall. On physical exam, her bronchospasm is resolving. In addition, the alveolar-arterial gradient is also resolving. Oxygen saturation on nasal cannula is now 97%. I will continue with the current nebulizer treatments and inhaled steroids for now. I did discuss the case with Dr. Brian Juárez yesterday. As noted previously, the patient will need a PET scan - as an outpatient - to further evaluate the CAT scan abnormalities(adenopathy) . In addition, the patient will most likely need a right heart catheterization - for us to get the proper medications for her pulmonary hypertension. I will discuss this issue with Cardiology this morning. The patient remains on revatio. Clinical status of the patient is definitely improved - compared to the initial status. However, again, the future status/prognosis for this patient remains very guarded. I will discuss the above with the attending physician again this morning. Kobi Haines MD ANNIE
[2017-11-12] MEDS: Budesonide 0.5 mg/2 ml Inhal Susp UD IH SCH ×2 (07:54→19:25)
--- NOTE | 2017-11-12 08:19 | PN ---
DATE: 11/11/2017 REASON FOR CONSULTATION: Sinus tachycardia, rule out tachybrady syndrome, on beta-calvin, admitted with bilateral pneumonia and sinus tachycardia. The patient denies any chest pain, shortness of breath or any palpitation. Now, the patient's heart rate is very well controlled on verapamil 40 mg three times a day and metoprolol. No further episode of tachycardia noted. Denies any chest pain, shortness of breath or any palpitation. Potassium is 3.3. We will supplement. This note is in addition to our nurse practitioner dictated this morning. We will continue verapamil 40 mg three times a day and metoprolol, monitor the heart rate. The patient is also on sildenafil for pulmonary hypertension. Echo showed severe pulmonary hypertension. LV function is in the normal limit and RV systolic pressure 98 consistent with severe pulmonary hypertension. We will review the Holter when it is done. Interim, continue verapamil, continue beta-calvin. We will follow with you. Thank you, Dr. Juárez, for providing us the opportunity in taking care of the patient, Tresa Swann. Abel Jones MD
--- NOTE | 2017-11-12 09:02 | PN ---
DATE: 11/11/2017 SUBJECTIVE: The patient is in bed in no acute distress. The patient was seen earlier today in 260. PHYSICAL EXAMINATION: VITAL SIGNS: Temperature is 98, blood pressure is 120/70, respiratory rate 18, heart rate of 93. HEENT: Unremarkable. NECK: Supple. LUNGS: Have decreased breath sounds. HEART: Normal S1, S2. ABDOMINAL: Soft, nontender. LABORATORY EXAMINATION: Reveals a white count of 14,000, hemoglobin of 11. Chemistries reveals a BUN of 20, creatinine of 0.2 and procalcitonin reveals 0.29. Urinalysis is noted. Serology is reviewed. Microbiology reveals the patient to have urine culture is E. coli is pansensitive. The blood cultures are reported to be negative. Review of orders reveals the patient to have aztreonam and azithromycin. ASSESSMENT AND PLAN: An 82-year-old female with sepsis secondary to bronchitis, bilateral pneumonia, fibrotic changes on CAT scan, mediastinal lymph node and day #6 of Zithromax and Zyvox. Dr. Haines's recommendation is that the patient have a PET scan as an outpatient. Also, day #6 of aztreonam and p.o. Zithromax. Zyvox has been discontinued. Currently on Zithromax and Azactam. Complete a short course of therapy. Tyrone Salazar MD
[2017-11-12] MEDS: Potassium Chloride 20 mEq ER Tab PO SCH ×2 (10:26→17:29)
[2017-11-12] MEDS: guaiFENesin-DM 600-30 mg ER Tab PO SCH ×2 (10:26→17:30)
[2017-11-12] MEDS: metOLazone 5 MG TAB PO SCH (10:26)
[2017-11-12] MEDS: Sildenafil 20 MG TAB PO SCH ×2 (10:26→17:29)
--- NOTE | 2017-11-12 12:41 | PN ---
DATE: 11/12/2017 REASONF FOR THE CONSULTATION: Rule out tachybrady syndrome, tachycardia admitted with bilateral pneumonia, pulmonary hypertension, now the patient is on verapamil and beta calvin, heart rate is very well controlled. SUBJECTIVE: The patient denies any chest pain, shortness of breath or any palpitations. OBJECTIVE: GENERAL: Not in apparent distress. VITAL SIGNS: Temperature afebrile, heart rate 80, blood pressure 120/80. HEENT: PERRLA. Extraocular muscles intact. NECK: Supple. No carotid bruit or thyromegaly. CHEST: Clear to auscultation. HEART: S1, S2 regular. ABDOMEN: Soft. EXTREMITIES: Clubbing and cyanosis negative. LABORATORY DATA: Blood workup as follows: WBC 14.6, hemoglobin 12.1, hematocrit 36.9, platelet count 276. Chemistry shows sodium 135, potassium 3.9, chloride 93, carbon dioxide 30, anion gap 15, BUN 25, creatinine 1. IMPRESSION: An 82-year-old female with past medical history significant for hypertension, admitted with bilateral pneumonia, was on beta calvin at home, while the patient is on telemetry found to have bradycardia, beta block the patient was in tachycardia. Now, the patient's heart rate is very well maintained on Lopressor 25 b.i.d. and verapamil. The patient has significant pulmonary hypertension by echo, right ventricular systolic pressure 96, started on low-dose Revatio, tolerating. Overall the patient is improving. We will better continue gentle diuretics, continue atorvastatin. Follow up the blood workup and repeat SMA-7 tomorrow. Continue negative fluid balance. We will follow with you. Thank you, Dr. Juárez for providing us the opportunity in taking care of the patient, Tresa Swann. Abel Jones MD
--- NOTE | 2017-11-12 16:42 | PN ---
DATE: 11/12/2017 SUBJECTIVE: The patient is an 82-year-old female with a past medical history positive for non-insulin dependent diabetes mellitus and hypothyroidism who was admitted to the intensive care unit on 11/05/2017 with sepsis and lobar pneumonia. As the patient improved, she was transferred to the telemetry floor. Clinically, the patient is improving day by day, today is day #7 of her hospital stay. This is day #5 of intravenous aztreonam. She has been changed over to oral azithromycin. She is being followed by Dr. Salazar, the Infectious disease specialist. She is also being followed by Dr. Haines and Dr. Fulton, her pulmonologists as well as Dr. Jones and Dr. Pedro, the cardiologists. CAT scan shows that she does have some mediastinal lymphadenopathy. At the suggestion of Dr. Haines, we will be further evaluating that later as an outpatient with right heart catheterization and PET scan. She also has been diagnosed with pulmonary hypertension for which she was started on Revatio 20 mg twice a day. When seen today, the patient is sitting up in the chair. Her is at the bedside. Clinically, the patient has improved. However, she is very anxious and nervous and does not like being in the hospital. It was noted that her pulse oximetry drops from 92 when at rest to 84% while walking to the bathroom. PHYSICAL EXAMINATION: LUNGS: Clear to auscultation. HEART: Regular. ABDOMEN: Soft and nontender. LABORATORY DATA: This morning while blood cell count is 14.6. Hemoglobin and hematocrit is 12.1 and 36.9 respectively. Sodium is 135, potassium is 3.9, blood urea nitrogen 25 and creatinine 1. ASSESSMENT AND PLAN: Her blood pressure is 120/80 with a heart rate of 80 and she is afebrile. We will continue with the antibiotics as per Infectious Disease. We will also follow the guidance of Cardiology and Pulmonology. We will have the patient evaluated for Transitional Care Unit for ambulatory strengths and endurance. Davidson Juárez MD
--- NOTE | 2017-11-12 21:59 | CP.PCM.PN ---
Subjective - Date & Time of Evaluation Date of Evaluation: 11/12/17 Time of Evaluation: 07:20 - Subjective Subjective: Comfortable on a chair, no fevers, not in distress, still with cough but much better. Objective - Vital Signs/Intake and Output Vital Signs (last 24 hours): Temp Pulse Resp BP Pulse Ox 98.7 F 85 19 125/72 91 L 11/11/17 18:00 11/11/17 18:55 11/11/17 18:00 11/11/17 18:55 11/11/17 06:00 Intake and Output: 11/11/17 11/12/17 18:59 06:59 Intake Total 774 Balance 774 - Medications Medications: Current Medications Acetaminophen (Tylenol 325mg Tab) 650 mg PO Q6H PRN PRN Reason: Pain, moderate (4-7) Last Admin: 11/06/17 21:12 Dose: 650 mg Atorvastatin Calcium (Lipitor) 5 mg PO DAILY [facility] Last Admin: 11/11/17 09:47 Dose: 5 mg Azithromycin (Zithromax) 250 mg PO DAILY [facility]; Protocol Stop: 11/16/17 10:01 Last Admin: 11/11/17 09:47 Dose: 250 mg Budesonide (Pulmicort Respules) 0.5 mg IH [id number] [facility] Last Admin: 11/11/17 19:53 Dose: 0.5 mg Furosemide (Lasix) 40 mg IVP DAILY [facility] Last Admin: 11/11/17 09:47 Dose: 40 mg Guaifenesin/Dextromethorphan (Mucinex-Dm 600-30 Mg) 1 tab PO BID [facility] Last Admin: 11/11/17 17:23 Dose: 1 tab Heparin Sodium (Porcine) (Heparin) 5,000 units SC Q8 [facility]; Protocol Last Admin: 11/11/17 21:45 Dose: 5,000 units Aztreonam (Azactam 1 Gm) 100 mls @ 100 mls/hr IVPB Q8 [facility]; Protocol Stop: 11/13/17 08:46 Last Admin: 11/11/17 21:45 Dose: 100 mls/hr Insulin Human Regular (Humulin R Med) 0 units SC ACHS [facility]; Protocol Last Admin: 11/11/17 17:23 Dose: 1 unit Levalbuterol HCl (Xopenex) 0.63 mg IH [id number] [facility] Last Admin: 11/11/17 19:53 Dose: 0.63 mg Levalbuterol HCl (Xopenex) 0.63 mg IH [id number] PRN PRN Reason: Shortness of Breath Last Admin: 11/07/17 16:23 Dose: 0.63 mg Levothyroxine Sodium (Synthroid) 100 mcg PO 0600 [facility] Last Admin: 11/11/17 05:40 Dose: 100 mcg Metolazone (Zaroxolyn) 5 mg PO DAILY [facility] Last Admin: 11/11/17 09:48 Dose: 5 mg Metoprolol Tartrate (Lopressor) 25 mg PO BID [facility] Last Admin: 11/11/17 17:24 Dose: 25 mg Pantoprazole Sodium (Protonix Ec Tab) 40 mg PO 0600 [facility] Last Admin: 11/11/17 05:40 Dose: 40 mg Potassium Chloride (K-Dur 20 Meq Er Tab) 20 meq PO BID [facility] Last Admin: 11/11/17 17:24 Dose: 20 meq Sildenafil Citrate (Revatio) 20 mg PO BID [facility] Last Admin: 11/11/17 17:24 Dose: 20 mg Verapamil HCl (Calan Tab) 40 mg PO TID [facility] Last Admin: 11/11/17 18:55 Dose: 40 mg - Labs Labs: 11/11/17 05:30 11/11/17 05:30 PT 15.3 SECONDS (9.4-12.5) H 11/05/17 14:30 INR 1.33 11/05/17 14:30 APTT 25.6 Seconds (25.1-36.5) 11/05/17 14:30 - Constitutional Appears: Chronically Ill - Head Exam Head Exam: NORMAL INSPECTION - Neck Exam Neck Exam: absent: Meningismus - Respiratory Exam Respiratory Exam: Decreased Breath Sounds - Cardiovascular Exam Cardiovascular Exam: +S1, +S2 - GI/Abdominal Exam GI & Abdominal Exam: Soft. absent: Tenderness Assessment and Plan - Assessment and Plan (Free Text) Plan: Assessment sepsis due to acute bronchitis R/O bilateral pneumonia (fibrotic changes at the bases on CT scan) mediastinal lymph node, R/O reactive HTN dyslipidemia DM obesity with BMI 33 Plan continue Zithromax and Azactam day 7; cultures have been negative; PCT has dropped to 0.29 urine Legionella Ag is pending as per Pulmonary, patient should get a PET scan as an outpatient (patient with mediastinal lymph nodes) will continue to monitor clinically
[2017-11-13] MEDS: Levalbuterol 0.63 MG/3 ML Inhal Soln UD IH SCH ×4 (01:04→19:14)
[2017-11-13] MEDS: Aztreonam 1 Gm in NS 100mL 100 ML IVPB SCH (06:19)
[2017-11-13] MEDS: Levothyroxine 100 MCG TAB PO SCH (06:20)
[2017-11-13] MEDS: Pantoprazole 40 mg EC Tab PO SCH (06:35)
--- NOTE | 2017-11-13 07:13 | CP.PCM.PN ---
Subjective - Date & Time of Evaluation Date of Evaluation: 11/13/17 Time of Evaluation: 06:20 - Subjective Subjective: Awake, no distress, lying in bed Reason for consultation and follow up: Cardiac evaluation of tachycardia, rule out tachy/bradycardia syndrome. on betablocker, admitted for bilateral pneumonia, severe pulmonary hypertension Seen and examined by me and Dr. Jnoes Objective - Vital Signs/Intake and Output Vital Signs (last 24 hours): Temp Pulse Resp BP Pulse Ox 98.8 F 75 20 108/68 94 L 11/13/17 06:00 11/13/17 06:00 11/13/17 06:00 11/13/17 06:00 11/13/17 06:00 - Medications Medications: Current Medications Acetaminophen (Tylenol 325mg Tab) 650 mg PO Q6H PRN PRN Reason: Pain, moderate (4-7) Last Admin: 11/06/17 21:12 Dose: 650 mg Atorvastatin Calcium (Lipitor) 5 mg PO DAILY [facility] Last Admin: 11/12/17 10:26 Dose: 5 mg Azithromycin (Zithromax) 250 mg PO DAILY [facility]; Protocol Stop: 11/16/17 10:01 Last Admin: 11/12/17 10:26 Dose: 250 mg Budesonide (Pulmicort Respules) 0.5 mg IH [id number] [facility] Last Admin: 11/12/17 19:25 Dose: 0.5 mg Furosemide (Lasix) 40 mg IVP DAILY [facility] Last Admin: 11/12/17 10:28 Dose: 40 mg Guaifenesin/Dextromethorphan (Mucinex-Dm 600-30 Mg) 1 tab PO BID [facility] Last Admin: 11/12/17 17:30 Dose: 1 tab Heparin Sodium (Porcine) (Heparin) 5,000 units SC Q8 [facility]; Protocol Last Admin: 11/13/17 06:20 Dose: 5,000 units Aztreonam (Azactam 1 Gm) 100 mls @ 100 mls/hr IVPB Q8 [facility]; Protocol Stop: 11/13/17 08:46 Last Admin: 11/13/17 06:19 Dose: 100 mls/hr Insulin Human Regular (Humulin R Med) 0 units SC ACHS [facility]; Protocol Last Admin: 11/12/17 21:45 Dose: Not Given Levalbuterol HCl (Xopenex) 0.63 mg IH [id number] [facility] Last Admin: 11/13/17 01:04 Dose: 0.63 mg Levalbuterol HCl (Xopenex) 0.63 mg IH [id number] PRN PRN Reason: Shortness of Breath Last Admin: 11/07/17 16:23 Dose: 0.63 mg Levothyroxine Sodium (Synthroid) 100 mcg PO 0600 [facility] Last Admin: 11/13/17 06:20 Dose: 100 mcg Metolazone (Zaroxolyn) 5 mg PO DAILY [facility] Last Admin: 11/12/17 10:26 Dose: 5 mg Metoprolol Tartrate (Lopressor) 25 mg PO BID [facility] Last Admin: 11/12/17 17:29 Dose: 25 mg Pantoprazole Sodium (Protonix Ec Tab) 40 mg PO 0600 [facility] Last Admin: 11/13/17 06:35 Dose: 40 mg Potassium Chloride (K-Dur 20 Meq Er Tab) 20 meq PO BID [facility] Last Admin: 11/12/17 17:29 Dose: 20 meq Sildenafil Citrate (Revatio) 20 mg PO BID [facility] Last Admin: 11/12/17 17:29 Dose: 20 mg Verapamil HCl (Calan Tab) 40 mg PO TID [facility] Last Admin: 11/12/17 17:29 Dose: 40 mg - Labs Labs: 11/12/17 06:00 11/12/17 06:00 PT 15.3 SECONDS (9.4-12.5) H 11/05/17 14:30 INR 1.33 11/05/17 14:30 APTT 25.6 Seconds (25.1-36.5) 11/05/17 14:30 - Constitutional Appears: Non-toxic, No Acute Distress - Head Exam Head Exam: ATRAUMATIC, NORMOCEPHALIC - Eye Exam Eye Exam: Normal appearance - ENT Exam ENT Exam: Mucous Membranes Moist - Respiratory Exam Respiratory Exam: Decreased Breath Sounds, Rhonchi, NORMAL BREATHING PATTERN - Cardiovascular Exam Cardiovascular Exam: REGULAR RHYTHM, +S1, +S2 Additional comments: Telemetry NSR 70-80's - GI/Abdominal Exam GI & Abdominal Exam: Soft, Normal Bowel Sounds - Neurological Exam Neurological Exam: Alert, Awake, Oriented x3 - Psychiatric Exam Psychiatric exam: Normal Affect, Normal Mood - Skin Skin Exam: Dry, Intact, Normal Color, Warm Assessment and Plan - Assessment and Plan (Free Text) Assessment: A 82 year old who came in to the ER due to shortness of breath and tachycardia. Consult was called due to tachycardia and episode of bradycardia.History of hypertension,pneumonia,diabetes, hypothyroidism, back surgery and leg surgery. Admitted for pneumonia. Rule out tachy/alina syndrome. Holter monitor,Echo severe pulmonary hypertension, started on Revatio.Clinically improved. Plan: Denies shortness of breath Denies chest pain Clinically improved Heart rate controlled NSR-60-70's Blood pressure controlled On Lipitor 5 mg daily, Lasix 40 mg daily,Synthroid 100 mcg daily, Zaroxylyn 5 mg daily, Lopressor 25 mg BID, Kdur 20 meq BID, Revatio 20 mg BID Verapamil 40 mg TID Continue antibiotics as per ID Pulmonary on consult Continue current treatment Continue current medications Chart reviewed Will follow up Plan and treatment discussed with Dr. Jones
[2017-11-13 07:34] LABS: CALCIUM 8.4 mg/dL (8.4-10.5)
[2017-11-13] MEDS: Insulin Reg-MEDIUM-Coverage SC SCH ×4 (08:00→22:06)
[2017-11-13] MEDS: Budesonide 0.5 mg/2 ml Inhal Susp UD IH SCH ×2 (08:38→19:14)
[2017-11-13] MEDS: Sildenafil 20 MG TAB PO SCH ×2 (09:47→17:10)
[2017-11-13] MEDS: metOLazone 5 MG TAB PO SCH (09:48)
[2017-11-13] MEDS: Potassium Chloride 20 mEq ER Tab PO SCH ×2 (09:48→17:09)
[2017-11-13] MEDS: guaiFENesin-DM 600-30 mg ER Tab PO SCH ×2 (11:46→17:10)
--- NOTE | 2017-11-13 12:59 | PN ---
DATE: 11/13/2017 SUBJECTIVE: The patient feels a lot better. No palpitations, no chest pain, no arrhythmia noted. Currently, patient is on verapamil 40 mg p.o. three times a day and metoprolol 25 p.o. b.i.d. Also, she was started on sildenafil for pulmonary hypertension. Continue aggressive treatment for pneumonia. Continue atorvastatin. Continue gentle diuretics. We will continue DVT prophylaxis. We will follow with you. We will give 40 of K-Dur, supplement potassium. The patient is already on 20 p.o. b.i.d. We will follow. If she need more, we can get tomorrow. Check blood workup tomorrow. If remains potassium low, then we will supplement, otherwise we will continue 20 b.i.d. Patient is on 20 b.i.d. Thank you, Dr. Juárez, for providing us the opportunity in taking care of the patient, Tresa Swann. Abel Jones MD
--- NOTE | 2017-11-13 14:28 | PN ---
DATE: 11/13/2017 PULMONARY PROGRESS NOTE SUBJECTIVE: The patient was seen and examined at bedside. She reports feeling better. She is on nasal cannula and she is not short of breath. She is receiving intravenous antibiotics Azactam and Zithromax. She is also on inhalation therapy, we added budesonide. PHYSICAL EXAMINATION: VITAL SIGNS: Her temperature is 98.8, pulse 75, respirations 20, pulse oximetry is 94 on nasal cannula. HEAD, EARS, NOSE AND THROAT: Within normal limits. NECK: Supple with no jugular vein distentions. CARDIOVASCULAR: S1, S2, No S3, regular. PULMONARY: Diminished breath sounds at both bases with few basilar rhonchi and no wheezing. GI: Soft, nontender. No organomegaly. EXTREMITIES: No pedal edema. SKIN: Clear with no cyanosis and no skin rashes. NEUROLOGIC: No focal deficits. ADDITIONAL DATA: Reviewed. Today's blood work reveals slight decrease in chloride to 95 and BUN increased at 33. The rest of her chemistries are normal except for elevated blood sugar. ASSESSMENT: 1. Pneumonia, clinically improving. 2. Acute bronchitis. 3. Sepsis syndrome. 4. Pulmonary fibrosis. 5. Pulmonary hypertension. PLAN: We will continue with current antibiotic administration with Azactam and Zithromax. Continue nebulizer treatments, we added budesonide, sildenafil for pulmonary hypertension although I suspect that her pulmonary hypertension is secondary to underlying lung disease with fibrosis. Anirudh Begum MD
--- NOTE | 2017-11-13 15:32 | CP.PCM.PN ---
Subjective - Date & Time of Evaluation Date of Evaluation: 11/13/17 Time of Evaluation: 11:05 - Subjective Subjective: Patient is feeling much better, no fevers, cough is improved, no nausea, no diarrhea, has more energy. Objective - Vital Signs/Intake and Output Vital Signs (last 24 hours): Temp Pulse Resp BP Pulse Ox 98.8 F 123 H 20 123/80 94 L 11/13/17 06:00 11/13/17 10:00 11/13/17 06:00 11/13/17 09:47 11/13/17 06:00 Intake and Output: 11/13/17 11/13/17 06:59 18:59 Intake Total 920 Balance 920 - Medications Medications: Current Medications Acetaminophen (Tylenol 325mg Tab) 650 mg PO Q6H PRN PRN Reason: Pain, moderate (4-7) Last Admin: 11/06/17 21:12 Dose: 650 mg Atorvastatin Calcium (Lipitor) 5 mg PO DAILY [facility] Last Admin: 11/13/17 09:48 Dose: 5 mg Azithromycin (Zithromax) 250 mg PO DAILY [facility]; Protocol Stop: 11/16/17 10:01 Last Admin: 11/13/17 09:48 Dose: 250 mg Budesonide (Pulmicort Respules) 0.5 mg IH [id number] [facility] Last Admin: 11/13/17 08:38 Dose: 0.5 mg Furosemide (Lasix) 40 mg IVP DAILY [facility] Last Admin: 11/13/17 09:46 Dose: 40 mg Guaifenesin/Dextromethorphan (Mucinex-Dm 600-30 Mg) 1 tab PO BID [facility] Last Admin: 11/13/17 11:46 Dose: 1 tab Heparin Sodium (Porcine) (Heparin) 5,000 units SC Q8 [facility]; Protocol Last Admin: 11/13/17 06:20 Dose: 5,000 units Insulin Human Regular (Humulin R Med) 0 units SC ACHS [facility]; Protocol Last Admin: 11/13/17 11:45 Dose: 8 unit Levalbuterol HCl (Xopenex) 0.63 mg IH [id number] [facility] Last Admin: 11/13/17 08:38 Dose: 0.63 mg Levalbuterol HCl (Xopenex) 0.63 mg IH [id number] PRN PRN Reason: Shortness of Breath Last Admin: 11/07/17 16:23 Dose: 0.63 mg Levothyroxine Sodium (Synthroid) 100 mcg PO 0600 [facility] Last Admin: 11/13/17 06:20 Dose: 100 mcg Metolazone (Zaroxolyn) 5 mg PO DAILY [facility] Last Admin: 11/13/17 09:48 Dose: 5 mg Metoprolol Tartrate (Lopressor) 25 mg PO BID [facility] Last Admin: 11/13/17 09:47 Dose: 25 mg Pantoprazole Sodium (Protonix Ec Tab) 40 mg PO 0600 [facility] Last Admin: 11/13/17 06:35 Dose: 40 mg Potassium Chloride (K-Dur 20 Meq Er Tab) 20 meq PO BID [facility] Last Admin: 11/13/17 09:48 Dose: 20 meq Sildenafil Citrate (Revatio) 20 mg PO BID [facility] Last Admin: 11/13/17 09:47 Dose: 20 mg Verapamil HCl (Calan Tab) 40 mg PO TID [facility] Last Admin: 11/13/17 09:47 Dose: 40 mg - Labs Labs: 11/12/17 06:00 11/13/17 06:30 PT 15.3 SECONDS (9.4-12.5) H 11/05/17 14:30 INR 1.33 11/05/17 14:30 APTT 25.6 Seconds (25.1-36.5) 11/05/17 14:30 - Constitutional Appears: Non-toxic, No Acute Distress, Chronically Ill - Head Exam Head Exam: NORMAL INSPECTION - Respiratory Exam Respiratory Exam: Decreased Breath Sounds - Cardiovascular Exam Cardiovascular Exam: +S1, +S2 - GI/Abdominal Exam GI & Abdominal Exam: Soft. absent: Tenderness Assessment and Plan - Assessment and Plan (Free Text) Plan: Assessment sepsis due to acute bronchitis R/O bilateral pneumonia (fibrotic changes at the bases on CT scan), clinically improving mediastinal lymph node, R/O reactive HTN dyslipidemia DM obesity with BMI 33 Plan continue Zithromax and we have discontinued Azactam; cultures have been negative; PCT has dropped to 0.29; may d/c zithromax in the next 48-72 hours urine Legionella Ag is negative as per Pulmonary, patient should get a PET scan as an outpatient (patient with mediastinal lymph nodes) will continue to monitor clinically
[2017-11-14 00:40] VITALS: RESP 20
[2017-11-14] MEDS: Levalbuterol 0.63 MG/3 ML Inhal Soln UD IH SCH ×4 (01:09→20:29)
[2017-11-14] MEDS: Pantoprazole 40 mg EC Tab PO SCH (05:09)
[2017-11-14] MEDS: Levothyroxine 100 MCG TAB PO SCH (05:09)
--- NOTE | 2017-11-14 06:56 | CP.PCM.PN ---
Subjective - Date & Time of Evaluation Date of Evaluation: 11/14/17 Time of Evaluation: 06:15 - Subjective Subjective: Awake, no distress, lying in bed,coughing moderate amount loosely Reason for consultation and follow up: Cardiac evaluation of tachycardia, rule out tachy/bradycardia syndrome. on betablocker, admitted for bilateral pneumonia, severe pulmonary hypertension Seen and examined by me and Dr. Jones Objective - Vital Signs/Intake and Output Vital Signs (last 24 hours): Temp Pulse Resp BP Pulse Ox 98.3 F 98 H 20 133/74 93 L 11/14/17 06:00 11/14/17 06:00 11/14/17 06:00 11/14/17 06:00 11/14/17 06:00 Intake and Output: 11/13/17 11/14/17 18:59 06:59 Intake Total 1980 300 Output Total 700 Balance 1280 300 - Medications Medications: Current Medications Acetaminophen (Tylenol 325mg Tab) 650 mg PO Q6H PRN PRN Reason: Pain, moderate (4-7) Last Admin: 11/06/17 21:12 Dose: 650 mg Atorvastatin Calcium (Lipitor) 5 mg PO DAILY [facility] Last Admin: 11/13/17 09:48 Dose: 5 mg Azithromycin (Zithromax) 250 mg PO DAILY [facility]; Protocol Stop: 11/16/17 10:01 Last Admin: 11/13/17 09:48 Dose: 250 mg Budesonide (Pulmicort Respules) 0.5 mg IH [id number] [facility] Last Admin: 11/13/17 19:14 Dose: 0.5 mg Furosemide (Lasix) 40 mg IVP DAILY [facility] Last Admin: 11/13/17 09:46 Dose: 40 mg Guaifenesin/Dextromethorphan (Mucinex-Dm 600-30 Mg) 1 tab PO BID [facility] Last Admin: 11/13/17 17:10 Dose: 1 tab Heparin Sodium (Porcine) (Heparin) 5,000 units SC Q8 [facility]; Protocol Last Admin: 11/14/17 05:08 Dose: 5,000 units Insulin Human Regular (Humulin R Med) 0 units SC ACHS [facility]; Protocol Last Admin: 11/13/17 22:06 Dose: Not Given Levalbuterol HCl (Xopenex) 0.63 mg IH [id number] [facility] Last Admin: 11/14/17 01:09 Dose: 0.63 mg Levalbuterol HCl (Xopenex) 0.63 mg IH [id number] PRN PRN Reason: Shortness of Breath Last Admin: 11/07/17 16:23 Dose: 0.63 mg Levothyroxine Sodium (Synthroid) 100 mcg PO 0600 [facility] Last Admin: 11/14/17 05:09 Dose: 100 mcg Metolazone (Zaroxolyn) 5 mg PO DAILY [facility] Last Admin: 11/13/17 09:48 Dose: 5 mg Metoprolol Tartrate (Lopressor) 25 mg PO BID [facility] Last Admin: 11/13/17 17:10 Dose: 25 mg Pantoprazole Sodium (Protonix Ec Tab) 40 mg PO 0600 [facility] Last Admin: 11/14/17 05:09 Dose: 40 mg Potassium Chloride (K-Dur 20 Meq Er Tab) 20 meq PO BID [facility] Last Admin: 11/13/17 17:09 Dose: 20 meq Sildenafil Citrate (Revatio) 20 mg PO BID [facility] Last Admin: 11/13/17 17:10 Dose: 20 mg Verapamil HCl (Calan Tab) 40 mg PO TID [facility] Last Admin: 11/13/17 17:10 Dose: 40 mg - Labs Labs: 11/12/17 06:00 11/13/17 06:30 PT 15.3 SECONDS (9.4-12.5) H 11/05/17 14:30 INR 1.33 11/05/17 14:30 APTT 25.6 Seconds (25.1-36.5) 11/05/17 14:30 - Constitutional Appears: Non-toxic, No Acute Distress - Head Exam Head Exam: NORMAL INSPECTION, NORMOCEPHALIC - Eye Exam Eye Exam: Normal appearance - ENT Exam ENT Exam: Mucous Membranes Moist - Respiratory Exam Respiratory Exam: Decreased Breath Sounds, Rhonchi, NORMAL BREATHING PATTERN Additional comments: coughing clear phlegm loosely - Cardiovascular Exam Cardiovascular Exam: REGULAR RHYTHM, +S1, +S2 Additional comments: NSR 70's telemetry - GI/Abdominal Exam GI & Abdominal Exam: Soft, Normal Bowel Sounds - Exam Additional comments: continent,denies pain - Extremities Exam Extremities Exam: Full ROM, Normal Capillary Refill, Normal Inspection - Neurological Exam Neurological Exam: Alert, Awake, Oriented x3 - Psychiatric Exam Psychiatric exam: Normal Affect, Normal Mood - Skin Skin Exam: Dry, Intact, Normal Color, Warm Assessment and Plan - Assessment and Plan (Free Text) Assessment: A 82 year old who came in to the ER due to shortness of breath and tachycardia. Consult was called due to tachycardia and episode of bradycardia.History of hypertension,pneumonia,diabetes, hypothyroidism, back surgery and leg surgery. Admitted for pneumonia. Rule out tachy/alina syndrome. Holter monitor,Echo severe pulmonary hypertension, started on Revatio.ID on consult. IV antibiotics.Clinically improved Plan: Feels okay Coughing whitish phlegm Denies shortness of breath Denies chest pain Heart rate controlled NSR-70's Blood pressure controlled On Lipitor 5 mg daily, Lasix 40 mg daily,Synthroid 100 mcg daily, Zaroxylyn 5 mg daily, Lopressor 25 mg BID, Kdur 20 meq BID, Revatio 20 mg BID Verapamil 40 mg TID Continue antibiotics as per ID Pulmonary on consult Continue current treatment Continue current medications Chart reviewed Will follow up Plan and treatment discussed with Dr. Jones
[2017-11-14] MEDS: Budesonide 0.5 mg/2 ml Inhal Susp UD IH SCH ×2 (07:56→20:29)
[2017-11-14 08:00] LABS: CALCIUM 8.9 mg/dL (8.4-10.5)
[2017-11-14] MEDS: Insulin Reg-MEDIUM-Coverage SC SCH ×4 (09:24→22:15)
[2017-11-14] MEDS: guaiFENesin-DM 600-30 mg ER Tab PO SCH ×2 (09:24→17:57)
[2017-11-14] MEDS: metOLazone 5 MG TAB PO SCH (09:24)
[2017-11-14] MEDS: Sildenafil 20 MG TAB PO SCH ×2 (09:24→17:57)
[2017-11-14] MEDS: Potassium Chloride 20 mEq ER Tab PO SCH ×2 (09:26→17:57)
--- NOTE | 2017-11-14 10:03 | PN ---
DATE: 11/14/2017 PULMONARY PROGRESS NOTE SUBJECTIVE: The patient was seen and examined at the bedside. She is receiving inhalation treatment with added budesonide and she is also on sildenafil for pulmonary hypertension. She is on antibiotics as well. PHYSICAL EXAMINATION: VITAL SIGNS: Her temperature is 98.3, pulse 98, respirations 20, pulse oximetry on room air is reduced to 93. HEENT: Head, ears, nose and throat are within normal limits. NECK: Supple with no jugular vein distentions. CARDIOVASCULAR: S1 and S2. No S3. Regular. PULMONARY: Diminished breath sounds at both bases with few coarse rhonchi. No wheezing. GASTROINTESTINAL: Soft, nontender. No organomegaly. EXTREMITIES: No pedal edema. SKIN: Clear with no skin rashes. No cyanosis. NEUROLOGIC: No focal deficits. LABORATORY DATA: Reviewed. Serum sodium 135, potassium 4, chloride 97. Today's BUN is 33. ASSESSMENT: 1. Pneumonia, clinically improving. 2. Acute bronchitis. 3. Sepsis syndrome. 4. Pulmonary hypertension. PLAN: The patient is improving. We will continue her current administrations of antibiotics, Azactam and Zithromax. Continue nebulizer treatments with added budesonide. Continue sildenafil. However, I suspect that the pulmonary hypertension is secondary to the underlying COPD and pulmonary fibrosis. Anirudh Begum MD
--- NOTE | 2017-11-14 13:25 | CP.PCM.PN ---
Subjective - Date & Time of Evaluation Date of Evaluation: 11/14/17 Time of Evaluation: 12:40 - Subjective Subjective: Patient is feeling better, cough is better, has more energy. No fevers. Objective - Vital Signs/Intake and Output Vital Signs (last 24 hours): Temp Pulse Resp BP Pulse Ox 98.3 F 98 H 20 133/74 93 L 11/14/17 06:00 11/14/17 06:00 11/14/17 06:00 11/14/17 06:00 11/14/17 06:00 Intake and Output: 11/14/17 11/14/17 06:59 18:59 Intake Total 300 Balance 300 - Medications Medications: Current Medications Acetaminophen (Tylenol 325mg Tab) 650 mg PO Q6H PRN PRN Reason: Pain, moderate (4-7) Last Admin: 11/06/17 21:12 Dose: 650 mg Atorvastatin Calcium (Lipitor) 5 mg PO DAILY [facility] Last Admin: 11/13/17 09:48 Dose: 5 mg Azithromycin (Zithromax) 250 mg PO DAILY [facility]; Protocol Stop: 11/16/17 10:01 Last Admin: 11/13/17 09:48 Dose: 250 mg Budesonide (Pulmicort Respules) 0.5 mg IH [id number] [facility] Last Admin: 11/14/17 07:56 Dose: 0.5 mg Furosemide (Lasix) 40 mg IVP DAILY [facility] Last Admin: 11/13/17 09:46 Dose: 40 mg Guaifenesin/Dextromethorphan (Mucinex-Dm 600-30 Mg) 1 tab PO BID [facility] Last Admin: 11/13/17 17:10 Dose: 1 tab Heparin Sodium (Porcine) (Heparin) 5,000 units SC Q8 [facility]; Protocol Last Admin: 11/14/17 05:08 Dose: 5,000 units Insulin Human Regular (Humulin R Med) 0 units SC ACHS [facility]; Protocol Last Admin: 11/13/17 22:06 Dose: Not Given Levalbuterol HCl (Xopenex) 0.63 mg IH [id number] [facility] Last Admin: 11/14/17 07:56 Dose: 0.63 mg Levalbuterol HCl (Xopenex) 0.63 mg IH [id number] PRN PRN Reason: Shortness of Breath Last Admin: 11/07/17 16:23 Dose: 0.63 mg Levothyroxine Sodium (Synthroid) 100 mcg PO 0600 [facility] Last Admin: 11/14/17 05:09 Dose: 100 mcg Metolazone (Zaroxolyn) 5 mg PO DAILY [facility] Last Admin: 11/13/17 09:48 Dose: 5 mg Metoprolol Tartrate (Lopressor) 25 mg PO BID [facility] Last Admin: 11/13/17 17:10 Dose: 25 mg Pantoprazole Sodium (Protonix Ec Tab) 40 mg PO 0600 [facility] Last Admin: 11/14/17 05:09 Dose: 40 mg Potassium Chloride (K-Dur 20 Meq Er Tab) 20 meq PO BID [facility] Last Admin: 11/13/17 17:09 Dose: 20 meq Sildenafil Citrate (Revatio) 20 mg PO BID [facility] Last Admin: 11/13/17 17:10 Dose: 20 mg Verapamil HCl (Calan Tab) 40 mg PO TID [facility] Last Admin: 11/13/17 17:10 Dose: 40 mg - Labs Labs: 11/12/17 06:00 11/14/17 06:30 PT 15.3 SECONDS (9.4-12.5) H 11/05/17 14:30 INR 1.33 11/05/17 14:30 APTT 25.6 Seconds (25.1-36.5) 11/05/17 14:30 - Constitutional Appears: No Acute Distress, Chronically Ill - Head Exam Head Exam: NORMAL INSPECTION - Respiratory Exam Respiratory Exam: Decreased Breath Sounds - Cardiovascular Exam Cardiovascular Exam: +S1, +S2 - GI/Abdominal Exam GI & Abdominal Exam: Soft. absent: Tenderness Assessment and Plan - Assessment and Plan (Free Text) Plan: Assessment sepsis due to acute bronchitis R/O bilateral pneumonia (fibrotic changes at the bases on CT scan), clinically improving mediastinal lymph node, R/O reactive HTN dyslipidemia DM obesity with BMI 33 Plan continue Zithromax and we have discontinued Azactam; cultures have been negative; PCT has dropped to 0.29; may d/c zithromax in the next 24-48 hours urine Legionella Ag is negative as per Pulmonary, patient should get a PET scan as an outpatient (patient with mediastinal lymph nodes) will continue to monitor clinically
[2017-11-15] MEDS: Levalbuterol 0.63 MG/3 ML Inhal Soln UD IH SCH ×3 (01:07→14:07)
[2017-11-15 04:00] VITALS: O2SAT 96
[2017-11-15] MEDS: Pantoprazole 40 mg EC Tab PO SCH (05:28)
[2017-11-15] MEDS: Levothyroxine 100 MCG TAB PO SCH (05:28)
--- NOTE | 2017-11-15 07:26 | CP.PCM.PN ---
Subjective - Date & Time of Evaluation Date of Evaluation: 11/15/17 Time of Evaluation: 06:40 - Subjective Subjective: No distress, lying in bed,awake Reason for consultation and follow up: Cardiac evaluation of tachycardia, rule out tachy/bradycardia syndrome. on betablocker, admitted for bilateral pneumonia, severe pulmonary hypertension Seen and examined by me and Dr. Jones Objective - Vital Signs/Intake and Output Vital Signs (last 24 hours): Temp Pulse Resp BP Pulse Ox 98.3 F 81 20 114/67 96 11/15/17 03:59 11/15/17 03:59 11/15/17 03:59 11/15/17 03:59 11/15/17 03:59 Intake and Output: 11/15/17 11/15/17 06:59 18:59 Intake Total 240 Balance 240 - Medications Medications: Current Medications Acetaminophen (Tylenol 325mg Tab) 650 mg PO Q6H PRN PRN Reason: Pain, moderate (4-7) Last Admin: 11/06/17 21:12 Dose: 650 mg Atorvastatin Calcium (Lipitor) 5 mg PO DAILY [facility] Last Admin: 11/14/17 09:24 Dose: 5 mg Azithromycin (Zithromax) 250 mg PO DAILY [facility]; Protocol Stop: 11/16/17 10:01 Last Admin: 11/14/17 09:26 Dose: 250 mg Budesonide (Pulmicort Respules) 0.5 mg IH [id number] [facility] Last Admin: 11/14/17 20:29 Dose: 0.5 mg Furosemide (Lasix) 40 mg IVP DAILY [facility] Last Admin: 11/14/17 09:33 Dose: 40 mg Guaifenesin/Dextromethorphan (Mucinex-Dm 600-30 Mg) 1 tab PO BID [facility] Last Admin: 11/14/17 17:57 Dose: 1 tab Heparin Sodium (Porcine) (Heparin) 5,000 units SC Q8 [facility]; Protocol Last Admin: 11/15/17 05:28 Dose: 5,000 units Insulin Human Regular (Humulin R Med) 0 units SC ACHS [facility]; Protocol Last Admin: 11/14/17 22:15 Dose: Not Given Levalbuterol HCl (Xopenex) 0.63 mg IH [id number] [facility] Last Admin: 11/15/17 01:07 Dose: Not Given Levalbuterol HCl (Xopenex) 0.63 mg IH [id number] PRN PRN Reason: Shortness of Breath Last Admin: 11/07/17 16:23 Dose: 0.63 mg Levothyroxine Sodium (Synthroid) 100 mcg PO 0600 [facility] Last Admin: 11/15/17 05:28 Dose: 100 mcg Metolazone (Zaroxolyn) 5 mg PO DAILY [facility] Last Admin: 11/14/17 09:24 Dose: 5 mg Metoprolol Tartrate (Lopressor) 25 mg PO BID [facility] Last Admin: 11/14/17 17:58 Dose: 25 mg Pantoprazole Sodium (Protonix Ec Tab) 40 mg PO 0600 [facility] Last Admin: 11/15/17 05:28 Dose: 40 mg Potassium Chloride (K-Dur 20 Meq Er Tab) 20 meq PO BID [facility] Last Admin: 11/14/17 17:57 Dose: 20 meq Sildenafil Citrate (Revatio) 20 mg PO BID [facility] Last Admin: 11/14/17 17:57 Dose: 20 mg Verapamil HCl (Calan Sr Tab) 120 mg PO DAILY [facility] - Labs Labs: 11/12/17 06:00 11/14/17 06:30 PT 15.3 SECONDS (9.4-12.5) H 11/05/17 14:30 INR 1.33 11/05/17 14:30 APTT 25.6 Seconds (25.1-36.5) 11/05/17 14:30 - Constitutional Appears: Non-toxic, No Acute Distress - Head Exam Head Exam: NORMAL INSPECTION, NORMOCEPHALIC - Eye Exam Eye Exam: Normal appearance - ENT Exam ENT Exam: Mucous Membranes Moist - Respiratory Exam Respiratory Exam: Decreased Breath Sounds, Clear to Ausculation Bilateral, NO RMAL BREATHING PATTERN - Cardiovascular Exam Cardiovascular Exam: +S1, +S2 - GI/Abdominal Exam GI & Abdominal Exam: Soft, Normal Bowel Sounds - Extremities Exam Extremities Exam: Full ROM, Normal Capillary Refill - Neurological Exam Neurological Exam: Alert, Awake, Oriented x3 - Psychiatric Exam Psychiatric exam: Normal Affect, Normal Mood - Skin Skin Exam: Normal Color, Warm Assessment and Plan - Assessment and Plan (Free Text) Assessment: A 82 year old who came in to the ER due to shortness of breath and tachycardia. Consult was called due to tachycardia and episode of bradycardia.History of hypertension,pneumonia,diabetes, hypothyroidism, back surgery and leg surgery. Admitted for pneumonia. Rule out tachy/alina syndrome. Holter monitor,Echo severe pulmonary hypertension, started on Revatio.ID on consult. IV antibiotics.Clinically improved Plan: Feels okay, denies shortness of breath Heart rate and bloos pressure controlled Cardiac status stable On Lipitor 5 mg daily, Lasix 40 mg daily,Synthroid 100 mcg daily, Zaroxylyn 5 mg daily, Lopressor 25 mg BID, Kdur 20 meq BID, Revatio 20 mg BID Verapamil 40 mg TID Continue antibiotics as per ID Pulmonary on consult Continue current treatment Continue current medications Chart reviewed Clinically improved possible discharge today Will follow up Plan and treatment discussed with Dr. Jones
[2017-11-15] MEDS: Insulin Reg-MEDIUM-Coverage SC SCH ×2 (08:00→12:05)
--- NOTE | 2017-11-15 08:21 | PN ---
DATE: 11/15/2017 PULMONARY NOTE SUBJECTIVE: The patient appears very comfortable this morning. She is not short of breath at rest. PHYSICAL EXAMINATION: VITAL SIGNS: Temperature is 98.3, pulse 81, respirations 18-20, blood pressure 114/67. Oxygen saturation on nasal cannula is 96%. HEENT: Normocephalic, atraumatic. No JVD. CARDIOVASCULAR: Systolic ejection murmur at the lower left sternal border. No S3 gallop. LUNGS: Crackles at both bases - probably chronic. No rhonchi or wheezing this morning. EXTREMITIES: Mild edema. No cyanosis, no clubbing. Calves are nontender to palpation. GASTROINTESTINAL: Abdomen is soft, nontender, and nondistended. Bowel sounds are positive. SKIN: No acute rash. NEUROLOGIC: Limited at the present time. IMPRESSION: 1. Acute bronchitis. 2. Sepsis syndrome, possible pneumonia. 3. Pulmonary fibrosis. 4. Abnormal CAT scan of the chest. 5. Pulmonary hypertension. PLAN: The patient appears very comfortable this morning. She is not short of breath at rest. She does state to feeling much better overall. On physical exam, her bronchospasm has primarily resolved. In addition, the alveolar-arterial gradient has also resolved. I will continue with the current nebulizer treatments and inhaled steroids for now. The patient also remains on Revatio - for the pulmonary hypertension. Input by Cardiology is also noted. I will discuss the case with them again later this morning. Clinical status of the patient is significantly improved - compared to her initial presentation. However, again, the overall status/prognosis for this patient does remain guarded. The patient is for discharge in the near future. She is well aware that she needs to follow up with me in the office - concerning her CAT scan and her pulmonary hypertension. I will discuss the above with Dr. Juárez this morning. Kobi Haines MD MTDD
[2017-11-15] MEDS: Budesonide 0.5 mg/2 ml Inhal Susp UD IH SCH (08:37)
[2017-11-15 08:57] VITALS: PULSE 84; TEMP 98.6
--- NOTE | 2017-11-15 09:09 | PN ---
DATE: 11/14/2017 SUBJECTIVE: The patient is 88-year-old female. The patient feels a lot better. No palpitation. No chest pain. No arrhythmia in telemetry noted. RECOMMENDATION: We will continue gentle diuretics. We will continue DVT prophylaxis. Supplement electrolytes as needed. Continue Revatio for pulmonary hypertension. Continue metoprolol 25 mg p.o. b.i.d. and continue verapamil 40 mg p.o. three times a day. We will change it to long-acting verapamil from tomorrow. Continue gentle diuretics in telemetry. 120 mg of verapamil daily from tomorrow. Reporting parameters are if the blood pressure is less than 110, we will hold the verapamil. Thank you, Dr. Juárez, for providing us the opportunity in taking care of the patient, Tresa Swann. This note is an addition to the note dictated by the nurse practitioner. We will follow with you. Abel Jones MD
[2017-11-15] MEDS: guaiFENesin-DM 600-30 mg ER Tab PO SCH (09:27)
[2017-11-15] MEDS: metOLazone 5 MG TAB PO SCH (09:27)
[2017-11-15] MEDS: Potassium Chloride 20 mEq ER Tab PO SCH (09:27)
[2017-11-15 09:34] VITALS: BP 132/70
[2017-11-15] MEDS: Sildenafil 20 MG TAB PO SCH (09:52)
[2017-11-15] MEDS ORDERED: Verapamil 120 mg ER Tab PO SCH (10:00)
--- NOTE | 2017-11-15 20:55 | CP.PCM.PN ---
Subjective - Date & Time of Evaluation Date of Evaluation: 11/15/17 Time of Evaluation: 11:00 - Subjective Subjective: Comfortable, afebrile, breathing is better. Objective - Vital Signs/Intake and Output Vital Signs (last 24 hours): Temp Pulse Resp BP Pulse Ox 98.6 F 84 20 132/70 96 11/15/17 08:57 11/15/17 08:57 11/15/17 08:57 11/15/17 09:27 11/15/17 08:57 - Labs Labs: 11/12/17 06:00 11/14/17 06:30 PT 15.3 SECONDS (9.4-12.5) H 11/05/17 14:30 INR 1.33 11/05/17 14:30 APTT 25.6 Seconds (25.1-36.5) 11/05/17 14:30 - Constitutional Appears: No Acute Distress, Chronically Ill - Head Exam Head Exam: NORMAL INSPECTION - ENT Exam ENT Exam: Mucous Membranes Moist - Respiratory Exam Respiratory Exam: Decreased Breath Sounds - Cardiovascular Exam Cardiovascular Exam: +S1, +S2 - GI/Abdominal Exam GI & Abdominal Exam: Soft. absent: Tenderness Assessment and Plan - Assessment and Plan (Free Text) Plan: Assessment sepsis due to acute bronchitis R/O bilateral pneumonia (fibrotic changes at the bases on CT scan), clinically improved mediastinal lymph node, R/O reactive HTN dyslipidemia DM obesity with BMI 33 Plan on Zithromax; cultures have been negative; PCT has dropped to 0.29; may d/c zithromax today urine Legionella Ag is negative as per Pulmonary, patient should get a PET scan as an outpatient (patient with mediastinal lymph nodes)
--- NOTE | 2017-11-16 08:28 | PN ---
DATE: 11/15/2017 REASON FOR CONSULTATION: Tachycardia. This note is an addendum to the initial progress note dictated by Autumn Plaza. Now, the patient has fairly stable heart rate and blood pressure. Heart rate is 84, blood pressure is 132/72 on verapamil ER 120 mg, started metoprolol. We will follow with you. Discussed with the patient for risk stratification. Consider stress test in 6 weeks as outpatient. Thank you, Dr. Juárez, for providing us the opportunity in taking care of our patient, Tresa Swann. Abel Jones MD
== END 2017-11-15 17:25 | disposition home health service (06) | DRG 871 ==
LOC: ED 13:26 → ERH 15:36 → CCU 18:24 → 2RNO 11-06 21:44 → 3RSO 11-15 03:34
PROVIDERS: ADMIT Internal Medicine; ATTEND Internal Medicine
DX: A41.9 Sepsis, unspecified organism (principal); J18.1 Lobar pneumonia, unspecified organism; N39.0 Urinary tract infection, site not specified; J20.9 Acute bronchitis, unspecified; B96.20 Unspecified Escherichia coli [E. coli] as the cause of diseases classified elsewhere; E87.6 Hypokalemia; E11.65 Type 2 diabetes mellitus with hyperglycemia; E03.9 Hypothyroidism, unspecified; E87.70 Fluid overload, unspecified; I10 Essential (primary) hypertension; J84.10 Pulmonary fibrosis, unspecified; I27.20 Pulmonary hypertension, unspecified; E78.5 Hyperlipidemia, unspecified; H91.91 Unspecified hearing loss, right ear; I07.1 Rheumatic tricuspid insufficiency; E78.00 Pure hypercholesterolemia, unspecified; Z77.22 Contact with and (suspected) exposure to environmental tobacco smoke (acute) (chronic); E66.9 Obesity, unspecified; Z68.33 Body mass index [BMI] 33.0-33.9, adult; Z79.84 Long term (current) use of oral hypoglycemic drugs; Z88.0 Allergy status to penicillin